=== PATIENT | female | born 1985 | race Asian ===

== ENCOUNTER → 2016-04-14 | Outpatient (CLI) | payer BC ==
[~2016-04-14] MED LIST: DOCU-94 PO; FERR1TAB23 PO; HYDR-5688 PO; PRENTAB26 PO
[2016-04-14 13:19] LABS: GTGD 50 Grams
== END | disposition home or self-care (01) ==
LOC: C.LAB1850 11:01
PROVIDERS: ATTEND Obstetrics & Gynecology
DX: Z34.03 Encounter for supervision of normal first pregnancy, third trimester (principal)

== ENCOUNTER → 2016-07-07 | Outpatient (CLI) | payer BC ==
[2016-07-07 12:00] LABS: URINE APPEARANCE CLEAR (CLEAR); URINE BILIRUBIN NEG (NEG); URINE COLOR YELLOW; URINE EPITHELIAL CELL AUTO >30 /lpf (0-5); URINE NITRITE NEG (NEG); URINE SPECIFIC GRAVITY 1.018 (1.000-1.030); UROBILINOGEN NEG (NEG)
[2016-07-07 12:06] LABS: MANUAL MICROSCOPIC REQUIRED? NO; REVIEW REQ? NO
[2016-07-07 12:18] LABS: HEMATOCRIT 31.8 % (37-47)
[2016-07-07 13:41] LABS: GTGD 50 Grams
== END | disposition home or self-care (01) ==
LOC: C.LAB1850 10:18
PROVIDERS: ATTEND Obstetrics & Gynecology
DX: Z34.03 Encounter for supervision of normal first pregnancy, third trimester (principal)

== ENCOUNTER → 2016-07-21 | Outpatient (CLI) | payer BC | END | disposition home or self-care (01) | LOC: C.LAB 08:12 | PROVIDERS: ATTEND Obstetrics & Gynecology | DX: O28.9 Unspecified abnormal findings on antenatal screening of mother (principal); Z3A.00 Weeks of gestation of pregnancy not specified ==

== ENCOUNTER 2016-09-01 05:42 | Inpatient (IN) | payer BC ==
[~2016-09-01] VITALS: Ht 162.6 cm; Wt 76.5 kg
[2016-09-01] MEDS ORDERED: LACTATED RINGER'S 1000ML 1,000 ML IV SCH (06:17)
[2016-09-01] MEDS ORDERED: LACTATED RINGER'S 1000ML 1,000 ML IV PRN (06:17)
[2016-09-01] MEDS ORDERED: PENICILLIN G POTASSIUM IV 6 MU in DEXTROSE 5% 250ML 250 ML IV STA (06:22)
[2016-09-01] MEDS ORDERED: FERR1TAB23 PO (06:28)
[2016-09-01] MEDS ORDERED: PRENTAB26 PO (06:28)
[2016-09-01 06:29] VITALS: Ht 162.6 cm; Wt 76.5 kg
[2016-09-01 06:38] LABS: HEMATOCRIT 33.2 % (37-47); MEAN CORPUSCULAR HEMOGLOBIN 31.4 pg (25-34); MEAN CORPUSCULAR HGB CONC 35.2 g/dl (32-36); MEAN PLATELET VOLUME 10.3 fL (7.4-10.4); PLATELET COUNT 171 K/uL (130-400); RED BLOOD COUNT 3.73 M/uL (4.2-5.4)
[2016-09-01] MEDS ORDERED: LACTATED RINGER'S 1000ML 500 ML IV PRN ×2 (08:54→12:10)
[2016-09-01] MEDS ORDERED: OXYTOCIN 30 UNITS/500ML NSS IV PRN ×2 (09:00→15:30)
[2016-09-01] MEDS: PENICILLIN G POTASSIUM IV 3 MU in DEXTROSE 5% 100ML 100 ML IV PRN ×2 (10:16→14:04)
[2016-09-01] MEDS ORDERED: EpHEDrine SULFATE INJ 50 MG/ML AMP ONE (11:03)
[2016-09-01] MEDS ORDERED: FENTANYL 2MCG/ML ROPIV 1.25MG/ML 100ML BAG EPI ONE (11:03)
[2016-09-01] MEDS: BUPIVACAINE 0.25% 30 ML VIAL ONE ×2 (11:18→12:03)
[2016-09-01] MEDS: FENTANYL CITRATE INJ 50 MCG/1 ML 2 ML VIAL ONE ×2 (11:19→12:04)
[2016-09-01] MEDS ORDERED: NALOXONE HCL INJ 1 MG in SODIUM CHLORIDE 0.9% 1000ML 1,000 ML IV PRN (12:10)
[2016-09-01] MEDS ORDERED: FENTANYL 2MCG/ML ROPIV 1.25MG/ML 100ML BAG EPI PRN (12:15)
[2016-09-01] MEDS ORDERED: NALBUPHINE HCL INJ 10 MG/ML AMP IV PRN (12:15)
[2016-09-01] MEDS ORDERED: NALOXONE HCL INJ 0.4 MG/1 ML VIAL/CARP IV PRN (12:15)
[2016-09-01] MEDS ORDERED: DiphenhydrAMINE HCL 50 MG/ML VIAL IV PRN (12:15)
[2016-09-01] MEDS ORDERED: EpHEDrine SULFATE INJ 50 MG/ML AMP IV PRN (12:15)
[2016-09-01] MEDS ORDERED: SUPERCREAM 0.870 % 15GM JAR EXT PRN (15:30)
[2016-09-01] MEDS ORDERED: LANOLIN OINT EXT PRN ×2 (15:30)
[2016-09-01] MEDS ORDERED: ACETAMINOPHEN 325 MG TAB PO PRN (15:30)
[2016-09-01] MEDS ORDERED: ACETAMINOPHEN/CODEINE 300/30MG TAB PO PRN ×2 (15:30)
[2016-09-01] MEDS ORDERED: BENZOCAINE 20% AER SPR 82.5 GM CAN EXT PRN (15:30)
--- NOTE | 2016-09-01 16:23 | Anesthesia Procedure Note ---
Anesthesia Epidural Removal Nt Date & Time Sep 01, 2016 at 16:23 Vital Signs Pain Intensity: 0.0 Notes Mental Status: alert / awake / arousable, participated in evaluation Nausea / Vomiting: adequately controlled Pain: adequately controlled Airway Patency, RR, SpO2: stable & adequate BP & HR: stable & adequate Hydration State: stable & adequate Neuraxial Anesthesia: was administered, sensory block is resolving Anesthetic Complications: no major complications apparent, pt satisfied with anesthetic care Epidural: removed without complications, with tip intact
[2016-09-01 18:30] VITALS: BP 111/75; PULSE 93; TEMP 36.8; O2SAT 100
[2016-09-01 19:30] VITALS: BP 107/73; PULSE 94; TEMP 36.6
--- NOTE | 2016-09-01 19:58 | DELIVERY SUMMARY ---
DATE OF OPERATION: 09/01/2016 She is a 31-year-old G1, P0 female, EDC of 09/26/2016, who presented with rupture of membranes at approximately 0400 hours on September 01. The patient presented to labor and delivery with grossly rupture of membranes. She was 4 cm upon arrival and she remains at 4 cm 4 hours later and Pitocin augmentation was begun. She received epidural analgesia and progressed to full dilation. She then pushed effectively over an intact perineum for delivery of a viable female . Mouth and nasopharynx were suctioned on the perineum. The rest of the delivered easily and was placed on the mother's abdomen for further attention. The cord was clamped and cut, cord blood for donation was obtained. The placenta was then expressed intact with a 3-vessel cord. A second degree perineal laceration was repaired with 3-0 chromic. The nurse has noted during pushing, that a polyp like lesion had extruded from the rectum during pushing. It was still prolapsed and on a very narrow stalk. It appeared to be either a polyp or a prolapsed hemorrhoid. The stalk was ligated with 3-0 chromic and the polyp/hemorrhoid was removed & sent to pathology. Bleeding was well controlled. Vaginal bleeding was controlled with dilute Pitocin. Estimated blood loss was 250 mL. Post-removal of this lesion revealed no other masses in the anus. She does have multiple external hemorrhoids as well. Mother and were doing well after delivery. I attest to the content of the Intraoperative Record and any orders documented therein. Any exceptions are noted below. [facility]
[2016-09-01] MEDS: DOCUSATE SODIUM 100 MG CAP PO SCH (20:02)
[2016-09-01 23:30] VITALS: BP 103/64; PULSE 87; TEMP 36.8
[2016-09-01] MEDS: IBUPROFEN 600 MG TAB PO PRN (23:37)
[2016-09-02 03:30] VITALS: BP 108/69; PULSE 80; TEMP 36.8
[2016-09-02 06:50] LABS: HEMATOCRIT 27.4 % (37-47)
--- NOTE | 2016-09-02 07:23 | Progress Note ---
Subjective Sep 02, 2016. Subjective conversation w/ patient, physical exam Ambulation: ambulating normally Voiding: no voiding problems Passing Gas: Yes Diet Tolerance: Regular Diet Lochia: Moderate Feeding Type: Breast Feeding Review of Systems Constitutional: No fever, No chills, No sweats, No weight loss, No weakness, No fatigue, No problem reported Breast: No see HPI, No breast lump, No change in shape, No nipple discharge, No breast pain, No problem reported Abdomen: No pain, No nausea, No vomiting, No diarrhea, No constipation, No GI bleeding, No problem reported Female : No see HPI, No dysuria, No urinary frequency, No hematuria, No incontinence, No abnormal vaginal bleeding, No vaginal discharge, No problem reported Objective Vital Signs Date Time Temp Pulse Resp B/P (MAP) Pulse Ox O2 Delivery O2 Flow Rate FiO2 09/02/16 03:30 36.8 80 16 108/69 (82) Room Air 09/01/16 23:30 36.8 87 16 103/64 (77) Room Air 09/01/16 23:30 Room Air 09/01/16 19:30 36.6 94 20 107/73 (84) Room Air 09/01/16 18:30 36.8 93 14 111/75 (87) 100 Room Air Physical Exam General Appearance: WELL-APPEARING, NO APPARENT DISTRESS Abdomen: non tender, soft Fundus: Firm, Non-Tender, Relation to Umbilicus (at U) Extremities: no calf tenderness Laboratory Results Last 24 Hours Test 09/02/16 06:20 Hemoglobin 9.4 g/dL Hematocrit 27.4 % Assessment and Plan Post- Day#: 1 Continue Routine Care: stable course continue current care plan hgb is 9.4 start ferrous sulfate daily
[2016-09-02 07:40] VITALS: BP 122/80; PULSE 82; TEMP 36.6; O2SAT 99
[2016-09-02] MEDS: DOCUSATE SODIUM 100 MG CAP PO SCH ×2 (07:48→19:54)
[2016-09-02] MEDS: PRENATAL VITAMIN TAB PO SCH (07:48)
[2016-09-02] MEDS: IBUPROFEN 600 MG TAB PO PRN ×2 (07:48→21:20)
[2016-09-02] MEDS: FERROUS SULFATE 325 MG TAB PO SCH (08:36)
[2016-09-02 11:55] VITALS: BP 122/76; PULSE 81; TEMP 36.6
[2016-09-02 15:46] VITALS: BP 116/75; PULSE 98; TEMP 36.8
[2016-09-02] MEDS ORDERED: BISACODYL 5 MG TABEC PO SCH (20:00)
--- NOTE | 2016-09-02 21:06 | Discharge Instructions ---
Discharge Instructions Date of Service Sep 02, 2016. Admission Reason for Admission: With 36 Weeks Completed Gestation, Discharge Discharge Diagnosis / Problem: after delivery Discharge Goals Goal(s): Routine recovery after delivery Medications Continue Dispensed Medications: supercream, dermaplast, tucks, lansinoh Activity Recommendations Activity Limitations: as noted below . Instructions / Follow-Up Instructions / Follow-Up ACTIVITY RECOMMENDATIONS: * Gradual return to full activity over the next 2-3 weeks. * No lifting - nothing heavier than baby over the next 2-3 weeks. * Do not engage in vigorous exercise, sexual activity or sports until cleared by your physician. * Do not drive or operate any motorized equipment until cleared by your physician. * You may shower/bathe daily. MEDICATIONS: For discomfort or pain, you may use Acetaminophen (Tylenol), Ibuprofen (Advil), or Naproxen (Aleve) following the package directions. For constipation you may use Colace following the package directions. BREAST CARE: If you are not breast feeding: * Wear a supportive bra 24 hours a day for one to two weeks. * Avoid stimulating your breasts and nipples as much as possible during the first few weeks after delivery. * When taking a shower, have the warm water hit your back, not breasts. * When your breasts feel full, apply ice packs. Usually three to four times a day helps ease the discomfort. * Take a mild pain medication (Tylenol / Motrin) when you are uncomfortable. If breast feeding: * Use breast milk to lubricate nipples. Lansinoh cream may be used for sore nipples. You do not need to remove cream prior to breast feeding. If using a different brand of cream, check the label for directions regarding removal of cream prior to nursing. * Wear a supportive bra. * If having problems with breasts or breast feeding, call a safety and health consultant or your health care provider. EPISIOTOMY CARE: After delivery, if you have an episiotomy (stitches), the following steps will ease discomfort and aid healing. * For the first 24 hours after delivery, place ice packs next to your episiotomy to help reduce swelling. * After the first 24 hour-period, sitz baths, either portable or in the tub, are suggested. A shower with a shower arm sprayed over the episiotomy may be comforting. * Misty care should be done after each voiding and bowel movement. Squirt warm water from a plastic bottle over the perineum (region of the body between the anus and urinary opening) and pat dry. * Use Dermoplast to ease discomfort. Shake container. [place] directly over the episiotomy. Place a Tucks on a clean sanitary pad next to your episiotomy. SPECIAL CARE INSTRUCTIONS: When you are discharged from the hospital, it is important for you to follow the instructions listed below: * During the first week at home, you should be able to care for yourself and your baby. In addition, the usual light household activities are encouraged. * Limit your activities to the way you feel. Do not try to clean the house or move furniture. Be sensible. * If you actively engage in sports and have done so up until the time of your delivery, you may resume these activities as soon as you feel able. This may take up to one month or even longer. Use good judgment. * Continue to take your vitamins for at least six weeks after the of your baby. * Your diet need not be limited unless you were on a special diet before your delivery. Breast-feeding mothers need around 2500 calories per day and at least 64-80 ounces of fluid per day (8 to 10 glasses). * You should eat foods from the four major food groups. Crash diets or fad diets are to be avoided. Eating lean meats, fresh fruits and vegetables, low-fat dairy products, high fiber foods and a regular exercise program, will help you get back to your pre- weight without putting your health at risk. * Constipation is sometimes a problem after delivery. Take a mild laxative as needed. If breast feeding, Milk of Magnesia is acceptable to use. You may use a suppository or Fleets enema if no episiotomy. * A daily shower or tub bath is suggested. Be sure to thoroughly and gently dry the perineum. * A bloody vaginal discharge will usually continue until around four weeks post . A small amount of bleeding may continue for as long as six weeks. Vaginal discharge changes from the bright red bleeding after delivery to pink then brownish and finally yellowish-pink before becoming white and disappearing. * Bleeding may increase with activity. Your first period may come in 4-8 weeks. If you are breast feeding, your period may be delayed even longer. * Veguita (sex) can begin whenever both you and your partner feel comfortable and do not have any form of genital infection. It is recommended that you wait at least six weeks for internal and external healing to occur. If you have questions, please talk to your health care practitioner. A condom should be used to prevent infection and . * Foreplay, gentle intercourse and lubrication is very important the first several times to prevent pain. A water-based lubricant such as K-Y jelly or Astroglide may be used. * If you have RH negative blood and your baby is RH positive, you will receive RHOGAM by injection prior to discharge. The nurse will give you a card to keep with you that has the date and place that you received RHOGAM after delivery. * During your care, you had a Rubella screen done to check for the presence of rubella antibodies in your blood. If your test was negative, you will receive a Rubella vaccine prior to discharge. This vaccine may cause a fever, soreness at the injection site and flu-like symptoms. If these symptoms persist, notify your health care practitioner. is not advised for one month after a Rubella vaccine. * Verbalizes understanding of car seat law as reviewed with patient nursing. * Car Seat hand-out given and reviewed with patient by nursing. * Shaken baby information reviewed with patient by nursing. Call you doctor if: * Heavy bleeding (saturating several pads an hour) or passing clots the size of your fist. * A fever >101 degrees F (38.3 degrees C) on two occasions four hours apart and /or chills. * Unusual pain in the pelvic or vaginal areas. * "Baby Blues" lasting longer than two weeks. If you have any questions or concerns, call your health care practitioner at . FOLLOW UP VISIT: * Please call the office at to schedule a 6 week examination. It is important you keep this appointment. It is important for you to make arrangements for either yearly or twice yearly check-ups thereafter. Current Hospital Diet Patient's current hospital diet: Regular OB Diet Discharge Diet Recommended Diet: Regular Diet Pending Studies Studies pending at discharge: no Medical Emergencies . Who to Call and When: Medical Emergencies: If at any time you feel your situation is an emergency, please call 911 immediately. . Non-Emergent Contact Non-Emergency issues call your: Head Of Operation And Logistics . . "Provider Documentation" section prepared by Nata Subramanian. . VTE Core Measure Inpt VTE Proph given/why not?: Treatment not indicated
[2016-09-03 00:05] VITALS: BP 101/66; PULSE 83; TEMP 36.6
[2016-09-03 07:17] VITALS: BP 117/79; PULSE 97; TEMP 36.6; O2SAT 99
--- NOTE | 2016-09-03 07:44 | Progress Note ---
Subjective Sep 03, 2016. Subjective conversation w/ patient, physical exam Ambulation: ambulating normally Voiding: no voiding problems Diet Tolerance: Regular Diet Lochia: Small Feeding Type: Breast Feeding Pain: bottom sore and stings with urination Objective Vital Signs Date Time Temp Pulse Resp B/P (MAP) Pulse Ox O2 Delivery O2 Flow Rate FiO2 09/03/16 00:05 Room Air 09/03/16 00:05 36.6 83 16 101/66 (78) Room Air 09/02/16 15:46 36.8 98 20 116/75 (89) Room Air 09/02/16 11:55 36.6 81 18 122/76 (91) Room Air Physical Exam General Appearance: WELL-APPEARING, WD/WN, NO APPARENT DISTRESS Respiratory/Chest: lungs clear Cardiovascular: regular rate, rhythm Abdomen: non tender, soft Fundus: Firm, Relation to Umbilicus (2 down) Extremities: non-tender Assessment and Plan Post- Day#: 2 Continue Routine Care: stable routine care, d/c home, instructions reviewed. f/u 6 wks pp check. discussed sitz baths.
[2016-09-03] MEDS: PRENATAL VITAMIN TAB PO SCH (07:55)
[2016-09-03] MEDS: DOCUSATE SODIUM 100 MG CAP PO SCH (07:55)
[2016-09-03] MEDS: FERROUS SULFATE 325 MG TAB PO SCH (07:55)
[2016-09-03] MEDS: IBUPROFEN 600 MG TAB PO PRN (13:12)
[2016-09-03 16:00] VITALS: BP 113/75; PULSE 86; TEMP 36.5
== END 2016-09-03 19:00 | disposition home or self-care (01) | DRG 775 ==
LOC: C.OPB 05:42 → C.LD 05:45 → C.OPB 06:22 → C.OBG 18:07
PROVIDERS: ADMIT Obstetrics & Gynecology; ATTEND Obstetrics & Gynecology
PROC: 10E0XZZ Delivery of Products of Conception, External Approach (ICD-10-PCS; principal; 2016-09-01)
PROC: 0KQM0ZZ Repair Perineum Muscle, Open Approach (ICD-10-PCS; principal; 2016-09-01)
PROC: 4A1HXFZ Monitoring of Products of Conception, Cardiac Rhythm, External Approach (ICD-10-PCS; principal; 2016-09-01)
DX: O42.92 Full-term premature rupture of membranes, unspecified as to length of time between rupture and onset of labor (principal); O70.1 Second degree perineal laceration during delivery; Z3A.36 36 weeks gestation of pregnancy; Z37.0 Single live birth

== ENCOUNTER 2016-09-12 00:55 | Emergency (ER) | payer BC ==
[~2016-09-12] VITALS: Ht 165.1 cm; Wt 70.0 kg
[~2016-09-12 00:55] MED LIST changes: -DOCU-94 PO; -HYDR-5688 PO
[2016-09-12 00:59] VITALS: TEMP 36.6; Ht 165.1 cm; Wt 70.0 kg
[2016-09-12] MEDS ORDERED: SODIUM CHLORIDE 0.9% 1000ML 1,000 ML IV STA (01:23)
[2016-09-12] MEDS ORDERED: ALUMINUM/MAGNESIUM SUSP 30 ML UDC PO STA (01:23)
[2016-09-12] MEDS ORDERED: ONDANSETRON INJ 2 MG/ML 2 ML VIAL IV STA (01:23)
[2016-09-12 01:52] LABS: MEAN CELL VOLUME 88.3 fL (80-100); MEAN CORPUSCULAR HEMOGLOBIN 31.9 pg (25-34); MEAN CORPUSCULAR HGB CONC 36.1 g/dl (32-36); MEAN PLATELET VOLUME 9.1 fL (7.4-10.4); PLATELET COUNT 289 K/uL (130-400); RED BLOOD COUNT 3.51 M/uL (4.2-5.4)
[2016-09-12 01:57] LABS: URINE APPEARANCE CLEAR (CLEAR); URINE BILIRUBIN NEG (NEG); URINE COLOR DK YELLOW; URINE EPITHELIAL CELL AUTO >30 /lpf (0-5); URINE NITRITE NEG (NEG); URINE SPECIFIC GRAVITY 1.023 (1.000-1.030); UROBILINOGEN NEG (NEG); ZZUR CULT IF INDIC CLEAN CATCH YES
[2016-09-12 02:01] LABS: MANUAL MICROSCOPIC REQUIRED? NO; REVIEW REQ? YES
[2016-09-12] MEDS ORDERED: DOCU-94 PO (02:04)
[2016-09-12 02:08] LABS: BUN/CREATININE RATIO 23.8 (10-20); CALCIUM 10.3 mg/dl (8.5-10.1); CREATININE 0.78 mg/dl (0.60-1.20); POTASSIUM 3.6 mmol/L (3.5-5.1)
[2016-09-12 02:25] LABS: BASO % 0.1 %; BASO ABS # 0.01 K/uL (0-0.2); COMPLETE YES; EOS % 0.4 %; IG% 0.2 %; MONO % 5.3 %
[2016-09-12 02:43] VITALS: O2SAT 97
[2016-09-12] MEDS ORDERED: OPTIRAY 320 IV PRN (03:30)
--- NOTE | 2016-09-12 04:33 | EMERGENCY ROOM VISIT NOTE ---
History First contact with patient: 01:06 Chief Complaint: ABDOMINAL PAIN Stated Complaint: STOMACH INFLATION Nursing Triage Summary: pt presents with . pt speaks some tajik with at bedside to assist with translation. pt reports having baby September 01. reports first , vaginal delivery. states she had sudden onset of upper abd/epigastric pain tonight after dinner. denies vomiting, states she feels nauseaous. denies diarrhea. states she has vaginal discharge/bleeding "it has been regular." pt rates pain 4/10. pt alert and oriented x4. pt has gallbladder. History of Present Illness The patient is a 31 year old female who presents to the Emergency Room with complaints of epigastric pain with nausea since 9 PM tonight shortly after eating dinner which his pizza, beef and potatoes. Patient had a vaginal delivery 10 days ago. The baby is healthy. No complications. Patient describes the pain as severe, 9 out of 10. Nothing makes it better or worse. Patient denies chest pain, dyspnea, fever, chills, cough, congestion, back pain , urinary symptoms. She does not drink alcohol. Review of Systems See HPI for pertinent positives & negatives. A total of 10 systems reviewed and were otherwise negative. Past Medical/Surgical History Medical Problems: (1) with 36 completed weeks gestation (2) premature rupture of membranes Social History Smoking Status: Never Smoker Smokeless Tobacco Use: No Alcohol Use: none Drug Use: none Marital Status: Housing Status: lives with family Current/Historical Medications Scheduled Docusate Sodium (Colace), 100 MG PO QAM Ferrous Sulfate (Iron), 325 MG PO QAM Multivit/Min/Iron/Fol Ac/Pren ( Vitamin), 1 TAB PO HS Allergies Coded Allergies: Metronidazole (Verified Allergy, Mild, GI SYMPTOMS, 09/12/16) Physical Exam Vital Signs Date Time Temp Pulse Resp B/P (MAP) Pulse Ox O2 Delivery O2 Flow Rate FiO2 09/12/16 02:43 66 18 117/71 97 Room Air 09/12/16 02:43 97 Room Air 09/12/16 00:59 36.6 66 18 116/75 99 Room Air Physical Exam VITALS: Vitals are noted on the nurse's note and reviewed by myself. Vital signs stable. GENERAL: Pleasant female in obvious pain, nondiaphoretic, well-developed well- nourished. SKIN: The skin was without rashes, erythema, edema, or bruising. There is no tenting of the skin. Capillary reflex less than 2 seconds. HEAD: Normocephalic atraumatic. EARS: External auditory canals clear, tympanic membranes pearly lazo without erythema or effusion bilaterally. EYES: Pupils equal round and reactive to light and accommodation. Conjunctivae without injection, sclerae without icterus. Extraocular movements intact. NOSE: Patent, turbinates without inflammation or discharge. MOUTH: Mucous membranes moist. Pharynx without erythema or exudate. Uvula midline. Airway patent. Tongue does not deviate. NECK: Supple without nuchal rigidity. No lymphadenopathy. No thyromegaly. Cervical spine is nontender. No JVD. HEART: Regular rate and rhythm without murmurs gallops or rubs. LUNGS: Clear to auscultation bilaterally without wheezes, rales or rhonchi. No dullness to percussion. No retractions or accessory muscle use. ABDOMEN: Positive bowel sounds x 4. Normal tympanic percussion. Soft, tender to palpation epigastric region, no CVA tenderness, without masses or organomegaly. No guarding or rebound tenderness. MUSCULOSKELETAL: No muscle atrophy, erythema, or edema noted. NEURO: Patient was alert and oriented to person place and time. Normal sensation to light and sharp touch. No focal neurological deficits. Medical Decision & Procedures Laboratory Results 09/12/16 01:38 Red Blood Count 3.51, Mean Corpuscular Volume 88.3, Mean Corpuscular Hemoglobin 31.9, Mean Corpuscular Hemoglobin Concent 36.1, Mean Platelet Volume 9.1, Neutrophils (%) (Auto) 85.0, Lymphocytes (%) (Auto) 9.0, Monocytes (%) (Auto) 5.3, Eosinophils (%) (Auto) 0.4, Basophils (%) (Auto) 0.1, Neutrophils # (Auto) 7.56, Lymphocytes # (Auto) 0.80, Monocytes # (Auto) 0.47, Eosinophils # (Auto) 0.04, Basophils # (Auto) 0.01 09/12/16 01:38 Test 09/12/16 01:35 09/12/16 01:38 Urine Color DK YELLOW Urine Appearance CLEAR (CLEAR) Urine pH 6.0 (4.5-7.5) Urine Specific Welch 1.023 (1.000-1.030) Urine Protein NEG (NEG) Urine Glucose (UA) NEG (NEG) Urine Ketones NEG (NEG) Urine Occult Blood 3+ (NEG) Urine Nitrite NEG (NEG) Urine Bilirubin NEG (NEG) Urine Urobilinogen NEG (NEG) Urine Leukocyte Esterase SMALL (NEG) Urine WBC (Auto) 10-30 /hpf (0-5) Urine RBC (Auto) >30 /hpf (0-4) Urine Hyaline Casts (Auto) 5-10 /lpf (0-5) Urine Epithelial Cells (Auto) >30 /lpf (0-5) Urine Bacteria (Auto) 1+ (NEG) Urine Renal Epithelial Cells /lpf (0-5) White Blood Count 8.90 K/uL (4.8-10.8) Red Blood Count 3.51 M/uL (4.2-5.4) Hemoglobin 11.2 g/dL (12.0-16.0) Hematocrit 31.0 % (37-47) Mean Corpuscular Volume 88.3 fL (80-100) Mean Corpuscular Hemoglobin 31.9 pg (25-34) Mean Corpuscular Hemoglobin Concent 36.1 g/dl (32-36) Platelet Count 289 K/uL (130-400) Mean Platelet Volume 9.1 fL (7.4-10.4) Neutrophils (%) (Auto) 85.0 % Lymphocytes (%) (Auto) 9.0 % Monocytes (%) (Auto) 5.3 % Eosinophils (%) (Auto) 0.4 % Basophils (%) (Auto) 0.1 % Neutrophils # (Auto) 7.56 K/uL (1.4-6.5) Lymphocytes # (Auto) 0.80 K/uL (1.2-3.4) Monocytes # (Auto) 0.47 K/uL (0.11-0.59) Eosinophils # (Auto) 0.04 K/uL (0-0.5) Basophils # (Auto) 0.01 K/uL (0-0.2) RDW Standard Deviation 40.6 fL (36.4-46.3) RDW Coefficient of Variation 12.6 % (11.5-14.5) Immature Granulocyte % (Auto) 0.2 % Immature Granulocyte # (Auto) 0.02 K/uL (0.00-0.02) Anion Gap 9.0 mmol/L (3-11) Est Creatinine Clear Calc Drug Dose 104.5 ml/min Estimated GFR () 119.1 Estimated GFR (Non- 102.7 BUN/Creatinine Ratio 23.8 (10-20) Calcium Level 10.3 mg/dl (8.5-10.1) Total Bilirubin 1.0 mg/dl (0.2-1) Direct Bilirubin 0.5 mg/dl (0-0.2) Aspartate Amino Transf (AST/SGOT) 145 U/L (15-37) Alanine Aminotransferase (ALT/SGPT) 88 U/L (12-78) Alkaline Phosphatase 147 U/L (45-117) Total Protein 7.1 gm/dl (6.4-8.2) Albumin 3.4 gm/dl (3.4-5.0) Lipase 2009 U/L (73-393) Medications Administered Medications (Trade) Dose Ordered Sig/Gregory Route Start Time Stop Time Status Last Admin Dose Admin Ondansetron HCl (Zofran Inj) 4 mg NOW STAT IV 09/12/16 01:23 09/12/16 01:29 DC 09/12/16 01:47 4 MG Al Hydroxide/Mg Hydroxide (Maalox Susp) 30 ml NOW STAT PO 09/12/16 01:23 09/12/16 01:29 DC 09/12/16 01:46 30 ML Sodium Chloride 1,000 ml @ 999 mls/hr Q1H1M STAT IV 09/12/16 01:23 09/12/16 02:23 DC 09/12/16 01:48 999 MLS/HR ED Course Prior records/ancillary studies reviewed. Triage Nursing notes reviewed. Additional history obtained from family. The patient's history was concerning for abdominal pain. Differential diagnosis: Etiologies such as appendicitis, diverticulitis, PUD, biliary pathology, UTI, pancreatitis, obstruction, mesenteric ischemia, aortic pathology, infections, inflammatory bowel disease, renal colic, as well as others were entertained. Physical examination findings: As above. ER treatment provided: MiraLAX, Zofran, IV fluids On reassessment the patient felt better. Diagnostics interpreted by me: The labs revealed elevated lipase and LFTs Imaging studies: CT was negative pancreatitis Ultrasound with no gallbladder wall thickening, trace pericholecystic fluid Exam and history seem consistent with pancreatitis. Patient was offered admission and requests to be discharged home. She is advised to do clear liquid diet today and then progress as tolerated to bland diet and low fat diet. She is advised to follow-up tomorrow with family care for reevaluation or here in the ER sooner for abdominal pain, fevers, worsening signs or symptoms or as needed. Patient was pain-free and requested to leave. I felt this is a reasonable option. She did not have acute abdomen on exam. No CT evidence of pancreatitis. Patient needed to pump and was given a breast pump prior to going to CT. Patient felt better after being medicated as above.By the evaluation outlined above emergent etiologies such as appendicitis, diverticulitis, PUD, UTI, obstruction, mesenteric ischemia, aortic pathology , inflammatory bowel disease, renal colic, as well as others were deemed relatively unlikely. Case management will help the patient make a follow-up appointment for tomorrow. The pt informed about the findings as listed above. All questions were answered and pleased with the treatment. Return instructions were outlined and the patient was discharged in stable condition. Referral: The patient was referred back to their primary care physician for follow-up tomorrow for a recheck of the current condition. Case reviewed with my attending Medical Decision As above Impression Primary Impression: Pancreatitis Departure Information Dispostion Home / Self-Care Condition GOOD Referrals No Doctor, Assigned (PCP) Patient Instructions My [facility] Additional Instructions Recommend clear liquid diet for next 24 hours and then progress to bland low- fat diet. Acetaminophen(Tylenol) may be used for fever or pain. Use 1000mg every six hours as needed. Avoid using more than 3000mg in a 24 hour period. Rest and drink plenty of fluids as tolerated. Continue current medications. Avoid strenuous activities and anything that worsens your pain. Resume normal activities once your symptoms resolve. Return to the ER immediately for worsening or persistent chest pain, abdominal pain, vomiting, fevers, chest pains, difficulty breathing, worsening of your condition, or as needed. Follow up with your primary physician tomorrow for a recheck of your current condition. Call this morning for an appointment. Case management will help me make this appointment. Problem Qualifiers Primary Impression: Pancreatitis Chronicity: acute Pancreatitis type: unspecified pancreatitis type Acute pancreatitis complication: unspecified Qualified Codes: K85.90 - Acute pancreatitis without necrosis or infection, unspecified
[2016-09-12 04:43] VITALS: BP 129/78; PULSE 65; O2SAT 98
--- NOTE | 2016-09-12 07:18 | DIAGNOSTIC IMAGING REPORT ---
ABDOMINAL ULTRASOUND, RIGHT UPPER QUADRANT HISTORY: epigastric pain. COMPARISON: None. FINDINGS: Pancreas: The pancreas demonstrates a normal echotexture. Liver: Unremarkable. Gallbladder: There are few small gallstones. No gallbladder wall thickening. Trace pericholecystic fluid. Focal thickening at the gallbladder fundus consistent with adenomyomatosis. CBD: Mildly prominent measuring up to 6.6 mm. Right kidney: No hydronephrosis. IMPRESSION: 1. Cholelithiasis. 2. No gallbladder wall thickening. There may be a trace amount of pericholecystic fluid. 3. Adenomyomatosis within the fundus of the gallbladder. 4. Common bile duct is mildly prominent at 6.6 mm. Electronically signed by: Ever Dias M.D. 09/12/2016 7:16 AM Dictated Date/Time: 09/12/2016 7:14 AM
--- NOTE | 2016-09-12 08:09 | DIAGNOSTIC IMAGING REPORT ---
ABDOMEN AND PELVIS CT WITH IV CONTRAST CT DOSE: 382.32 mGy.cm HISTORY: Pain epi pain, ? Pancreatitis TECHNIQUE: Multiaxial CT images of the abdomen and pelvis were performed following the use of intravenous contrast. COMPARISON STUDY: None. FINDINGS: Lung bases are considered clear. Minimal dependent basilar atelectasis. Liver spleen and pancreas appear unremarkable. Gallbladder is negative for distention. Heart bowel pattern within the abdomen and pelvis is nonobstructive. Moderate prominence of the uterus and endometrium consistent with patient's state. No significant free fluid is identified. IMPRESSION: No acute process within the abdomen or pelvis. Nonobstructive bowel pattern. Electronically signed by: Jesus Forrest M.D. 09/12/2016 8:07 AM Dictated Date/Time: 09/12/2016 8:04 AM
== END 2016-09-12 04:43 | disposition home or self-care (01) ==
LOC: C.EDB 00:57
DX: K85.90 Acute pancreatitis without necrosis or infection, unspecified (principal); Z88.8 Allergy status to other drugs, medicaments and biological substances

== ENCOUNTER → 2016-09-13 | Outpatient (CLI) | payer BC ==
[~2016-09-13] MED LIST changes: +DOCU-94 PO; +HYDR-5688 PO
[2016-09-13 22:19] LABS: BLOOD UREA NITROGEN 12 mg/dl (7-18); BUN/CREATININE RATIO 18.1 (10-20); CARBON DIOXIDE 20 mmol/L (21-32); CHLORIDE 107 mmol/L (98-107); CREATININE 0.68 mg/dl (0.60-1.20); GLUCOSE 64 mg/dl (70-99); POTASSIUM 3.6 mmol/L (3.5-5.1); SODIUM 140 mmol/L (136-145)
[2016-09-13 22:21] LABS: ALKALINE PHOSPHATASE 154 U/L (45-117); ALT/SGPT 185 U/L (12-78); AST/SGOT 51 U/L (15-37)
[2016-09-13 22:29] LABS: CALCIUM 9.8 mg/dl (8.5-10.1)
== END | disposition home or self-care (01) ==
LOC: C.LAB 21:35
PROVIDERS: ATTEND Family Medicine
DX: K80.20 Calculus of gallbladder without cholecystitis without obstruction (principal); K85.90 Acute pancreatitis without necrosis or infection, unspecified

== ENCOUNTER 2016-09-23 21:59 | Inpatient (IN) | payer BC ==
[~2016-09-23] VITALS: Ht 165.1 cm; Wt 62.0 kg
[~2016-09-23 21:59] MED LIST changes: -HYDR-5688 PO
[2016-09-23] MEDS ORDERED: ALUMINUM/MAGNESIUM SUSP 30 ML UDC PO STA (22:14)
[2016-09-23] MEDS ORDERED: LIDOCAINE HCL 2% VISC SOLN 20 ML UDC PO STA (22:14)
[2016-09-23] MEDS ORDERED: ONDANSETRON INJ 2 MG/ML 2 ML VIAL IV STA (22:14)
[2016-09-23] MEDS ORDERED: SODIUM CHLORIDE 0.9% 1000ML 1,000 ML IV STA (22:14)
[2016-09-23 22:52] LABS: BASO % 0.4 %; BASO ABS # 0.02 K/uL (0-0.2); COMPLETE YES; HEMATOCRIT 33.5 % (37-47); IG% 0.2 %; LYMPH % 36.2 %; LYMPH ABS # 1.69 K/uL (1.2-3.4); MEAN CELL VOLUME 89.1 fL (80-100); MEAN CORPUSCULAR HEMOGLOBIN 31.9 pg (25-34); MEAN CORPUSCULAR HGB CONC 35.8 g/dl (32-36); MEAN PLATELET VOLUME 10.1 fL (7.4-10.4); MONO % 8.1 %; NEUT % 52.1 %; PLATELET COUNT 257 K/uL (130-400); RED BLOOD COUNT 3.76 M/uL (4.2-5.4); WHITE BLOOD COUNT 4.67 K/uL (4.8-10.8)
[2016-09-23 23:03] LABS: PARTIAL THROMBOPLASTIN RATIO 1.1; PROTHROMBIN TIME (PATIENT) 10.7 SECONDS (9.0-12.0)
[2016-09-23 23:04] LABS: MANUAL MICROSCOPIC REQUIRED? NO; REVIEW REQ? NO; URINE APPEARANCE CLEAR (CLEAR); URINE BILIRUBIN NEG (NEG); URINE COLOR YELLOW; URINE NITRITE NEG (NEG); URINE PH 8.5 (4.5-7.5); URINE SPECIFIC GRAVITY 1.018 (1.000-1.030); UROBILINOGEN NEG (NEG); ZZUR CULT IF INDIC CLEAN CATCH NO
[2016-09-23 23:10] LABS: BUN/CREATININE RATIO 19.9 (10-20); CALCIUM 10.3 mg/dl (8.5-10.1); CREATININE 0.71 mg/dl (0.60-1.20); POTASSIUM 3.9 mmol/L (3.5-5.1)
[2016-09-24] MEDS ORDERED: FENTANYL CITRATE INJ 50 MCG/1 ML 2 ML VIAL IV ONE
--- NOTE | 2016-09-24 00:28 | EMERGENCY ROOM VISIT NOTE ---
History Report prepared by Lauro: Jair Will Under the Supervision of: Dr. Chuck Rueda D.O. First contact with patient: 22:03 Chief Complaint: GI ASSESSMENT Stated Complaint: PANCREATITIS History of Present Illness The patient is a 31 year old female who presents to the Emergency Room with complaints of constant abdominal pain for the past hour. She currently rates her discomfort as a 5/10 in severity. The patient's states that the patient was in the ER a few weeks ago for similar symptoms, and she was diagnosed with pancreatitis and gall stones. The patient states that she is nauseous, though she denies any vomiting. The states that the patient is currently breast feeding her child. The patient states that the last time she ate was 1730, and she ate fish, tofu, and eggplant. Source of History: patient, spouse/significant other Onset: one hour ago Position: abdomen Symptom Intensity: 5/10 Timing: constant Associated Symptoms: + nausea, No vomiting Review of Systems See HPI for pertinent positives & negatives. A total of 10 systems reviewed and were otherwise negative. Past Medical & Surgical Medical Problems: (1) Cholecystitis (2) with 36 completed weeks gestation (3) premature rupture of membranes Social History Smoking Status: Never Smoker Alcohol Use: none Drug Use: none Marital Status: Housing Status: lives with family Current/Historical Medications Scheduled Docusate Sodium (Colace), 100 MG PO QAM Ferrous Sulfate (Iron), 325 MG PO QAM Multivit/Min/Iron/Fol Ac/Pren ( Vitamin), 1 TAB PO HS Allergies Coded Allergies: Metronidazole (Verified Allergy, Mild, GI SYMPTOMS, 09/23/16) Physical Exam Vital Signs Date Time Temp Pulse Resp B/P (MAP) Pulse Ox O2 Delivery O2 Flow Rate FiO2 09/24/16 00:20 61 09/23/16 23:40 69 18 119/71 99 Room Air 09/23/16 22:00 36.3 79 18 118/79 100 Room Air Physical Exam CONSTITUTIONAL/VITAL SIGNS: Reviewed / noted above. GENERAL: Non-toxic in appearance. INTEGUMENTARY: Warm, dry, and [place]. HEAD: Normocephalic. EYES: without scleral icterus or trauma. ENT/OROPHARYNX: clear and moist. LYMPHADENOPATHY/NECK: Is supple without lymphadenopathy or meningismus. RESPIRATORY: Lungs clear and equal. CARDIOVASCULAR: Regular rate and rhythm. GI/ABDOMEN: Mildly tender to the epigastrium and the right upper quadrant. Soft. No organomegaly or pulsatile mass. No rebound or guarding. Normal bowel sounds. EXTREMITIES: Warm and well perfused. BACK: No CVA tenderness. NEUROLOGICAL: Intact without focal deficits. PSYCHIATRIC: normal affect. MUSCULOSKELETAL: Normally developed with good muscle tone. Medical Decision & Procedures Laboratory Results 09/23/16 22:30 Red Blood Count 3.76, Mean Corpuscular Volume 89.1, Mean Corpuscular Hemoglobin 31.9, Mean Corpuscular Hemoglobin Concent 35.8, Mean Platelet Volume 10.1, Neutrophils (%) (Auto) 52.1, Lymphocytes (%) (Auto) 36.2, Monocytes (%) (Auto) 8.1, Eosinophils (%) (Auto) 3.0, Basophils (%) (Auto) 0.4, Neutrophils # (Auto) 2.43, Lymphocytes # (Auto) 1.69, Monocytes # (Auto) 0.38, Eosinophils # (Auto) 0.14, Basophils # (Auto) 0.02 09/23/16 22:30 Test 09/23/16 22:30 09/23/16 22:50 White Blood Count 4.67 K/uL (4.8-10.8) Red Blood Count 3.76 M/uL (4.2-5.4) Hemoglobin 12.0 g/dL (12.0-16.0) Hematocrit 33.5 % (37-47) Mean Corpuscular Volume 89.1 fL (80-100) Mean Corpuscular Hemoglobin 31.9 pg (25-34) Mean Corpuscular Hemoglobin Concent 35.8 g/dl (32-36) Platelet Count 257 K/uL (130-400) Mean Platelet Volume 10.1 fL (7.4-10.4) Neutrophils (%) (Auto) 52.1 % Lymphocytes (%) (Auto) 36.2 % Monocytes (%) (Auto) 8.1 % Eosinophils (%) (Auto) 3.0 % Basophils (%) (Auto) 0.4 % Neutrophils # (Auto) 2.43 K/uL (1.4-6.5) Lymphocytes # (Auto) 1.69 K/uL (1.2-3.4) Monocytes # (Auto) 0.38 K/uL (0.11-0.59) Eosinophils # (Auto) 0.14 K/uL (0-0.5) Basophils # (Auto) 0.02 K/uL (0-0.2) RDW Standard Deviation 39.4 fL (36.4-46.3) RDW Coefficient of Variation 12.1 % (11.5-14.5) Immature Granulocyte % (Auto) 0.2 % Immature Granulocyte # (Auto) 0.01 K/uL (0.00-0.02) Prothrombin Time 10.7 SECONDS (9.0-12.0) Prothromb Time International Ratio 1.0 (0.9-1.1) Activated Partial Thromboplast Time 28.3 SECONDS (21.0-31.0) Partial Thromboplastin Ratio 1.1 Anion Gap 7.0 mmol/L (3-11) Est Creatinine Clear Calc Drug Dose 105.2 ml/min Estimated GFR () 133.4 Estimated GFR (Non- 115.1 BUN/Creatinine Ratio 19.9 (10-20) Calcium Level 10.3 mg/dl (8.5-10.1) Total Bilirubin 0.4 mg/dl (0.2-1) Direct Bilirubin 0.2 mg/dl (0-0.2) Aspartate Amino Transf (AST/SGOT) 54 U/L (15-37) Alanine Aminotransferase (ALT/SGPT) 43 U/L (12-78) Alkaline Phosphatase 125 U/L (45-117) Total Protein 6.8 gm/dl (6.4-8.2) Albumin 3.6 gm/dl (3.4-5.0) Lipase 154 U/L (73-393) Urine Color YELLOW Urine Appearance CLEAR (CLEAR) Urine pH 8.5 (4.5-7.5) Urine Specific [place] 1.018 (1.000-1.030) Urine Protein NEG (NEG) Urine Glucose (UA) NEG (NEG) Urine Ketones NEG (NEG) Urine Occult Blood 1+ (NEG) Urine Nitrite NEG (NEG) Urine Bilirubin NEG (NEG) Urine Urobilinogen NEG (NEG) Urine Leukocyte Esterase SMALL (NEG) Urine WBC (Auto) 5-10 /hpf (0-5) Urine RBC (Auto) 0-4 /hpf (0-4) Urine Hyaline Casts (Auto) 1-5 /lpf (0-5) Urine Epithelial Cells (Auto) 5-10 /lpf (0-5) Urine Bacteria (Auto) NEG (NEG) Laboratory results as stated above per my review. Medications Administered Medications (Trade) Dose Ordered Sig/Gregory Route Start Time Stop Time Status Last Admin Dose Admin Sodium Chloride 1,000 ml @ 999 mls/hr Q1H1M STAT IV 09/23/16 22:14 09/23/16 23:14 DC 09/23/16 22:14 999 MLS/HR Ondansetron HCl (Zofran Inj) 4 mg NOW STAT IV 09/23/16 22:14 09/23/16 22:16 DC 09/23/16 22:38 4 MG Al Hydroxide/Mg Hydroxide (Maalox Susp) 30 ml NOW STAT PO 09/23/16 22:14 09/23/16 22:16 DC 09/23/16 22:14 30 ML Lidocaine HCl (Viscous Lidocaine 2% Soln) 10 ml NOW STAT PO 09/23/16 22:14 09/23/16 22:16 DC 09/23/16 22:14 10 ML Fentanyl Citrate (Fentanyl Inj) 100 mcg NOW ONCE IV 09/24/16 00:00 09/24/16 00:01 DC 09/24/16 00:04 100 MCG ED Course 2209: Previous medical records were reviewed. The patient was evaluated in room B7. A complete history and physical examination was performed. 2214: Viscous Lidocaine 2% Soln 10ml PO, Maalox Susp 30ml PO, Zofran Inj 4mg IV , Sodium Chloride 1000 ml @ 999 mls/hr IV 2355: I reevaluated the patient, and I updated her on the treatment plan. 0000: Fentanyl Inj 100mcg IV 0018: I discussed the patient's case with Dr. Estrada. He is going to evaluate the patient for further treatment Medical Decision Differential considered: pancreatitis, hepatitis, or acute cholecystitis, AAA, UTI, pyelonephritis, kidney stones, appendicitis, diverticulitis, shingles, bowel obstruction mesenteric ischemia, intussusception,hernia, ovarian torsion, ruptured ovarian cyst, ectopic , . Medication Reconciliation: I attest that I have personally reviewed the patient' s current medication list. Blood pressure Screening: Patient was found to have normal blood pressure on screening and does not require follow-up. This is a 31-year-old female who presents to the ED with a chief complaint of epigastric abdominal pain. Her symptoms started about an hour prior to arrival. It is associated with nausea. The patient has had recent similar symptoms and had ultrasound with cholelithiasis and lab findings suggesting pancreatitis. She was discharged. She had repeat outpatient studies that revealed resolved pancreatic enzymes. Her physical exam reveals some mild epigastric and right upper quadrant abdominal tenderness. Vital signs are normal. CBC is normal, complete metabolic panel was unremarkable, lipase is negative, urine did not show infection. Ultrasound of the gallbladder reveals stones and sludge within the distended gallbladder. There was no wall thickening. Common bile duct is prominent measuring up to 11 mm. This is increased compared to a prior ultrasound. Correlation with MRCP was suggested. The patient was told the results. She was given a GI cocktail spinal fluids and IV Zofran. She was also given IV fentanyl for pain relief. I spoke with the hospitalist, who will see the patient for further inpatient evaluation and care. Consults Time Called: 14 Consulting Physician: Dr. Estrada Returned Call: [phone] I discussed the patient's case with Dr. Estrada. He is going to evaluate the patient for further treatment. Impression Primary Impression: Biliary colic Additional Impression: Choledocholithiasis Scribe Attestation The scribe's documentation has been prepared under my direction and personally reviewed by me in its entirety. I confirm that the note above accurately reflects all work, treatment, procedures, and medical decision making performed by me. Departure Information Dispostion Being Evaluated By Hospitalist Referrals Senait Dunbar M.D. (PCP) Patient Instructions My [facility] Problem Qualifiers
[2016-09-24] MEDS ORDERED: HYDROmorphone INJ 0.5 MG/0.5 ML SYR IV PRN (00:30)
[2016-09-24] MEDS ORDERED: ACETAMINOPHEN 325 MG TAB PO PRN (00:30)
[2016-09-24] MEDS ORDERED: ONDANSETRON INJ 2 MG/ML 2 ML VIAL IV PRN (00:30)
--- NOTE | 2016-09-24 01:27 | History and Physical ---
History & Physical Date & Time of Service: Sep 24, 2016 at 01:12 Chief Complaint: Pancreatitis Primary Care Physician: Senait Dunbar M.D. History of Present Illness Source: patient 31 y/o F with no significant medical history. Pt developed RUQ abdominal pain which was unremitting and presented for evaluation. She had similar symptoms one week prior. She was treated for presumed mild pancreatitis in the ER and discharged. The pt gave on 09/01 and is currently breast feeding. She denies any fevers. Denies vomiting or diarrhea. An abdominal ultrasound was obtained revealing a distended gall bladder with stones and sludge in addition to a dilated CBD at 11mm. Social History Smoking Status: Never Smoker Drug Use: none Marital Status: Allergies Coded Allergies: Metronidazole (Verified Allergy, Mild, GI SYMPTOMS, 09/23/16) Home Medications Scheduled Docusate Sodium (Colace), 100 MG PO QAM Ferrous Sulfate (Iron), 325 MG PO QAM Multivit/Min/Iron/Fol Ac/Pren ( Vitamin), 1 TAB PO HS Review of Systems Constitutional: No fever, No chills, No sweats Eyes: No worsening of vision ENT: No hearing loss, No unusual epistaxis, No nasal symptoms Respiratory: No cough, No sputum, No wheezing Cardiovascular: No chest pain, No orthopnea, No PND Abdomen: + pain, + nausea, No vomiting, No diarrhea Musculoskeletal: No joint pain, No muscle pain Genitourinary - Female: No dysuria Neurologic: No memory loss, No paralysis, No weakness Psychiatric: No depression symptoms Endocrine: No fatigue Hematologic / Lymphatic: No abnormal bleeding/bruising Integumentary: No rash Allergic / Immunologic: No environmental allergies Physical Exam Vital Signs Date Time Temp Pulse Resp B/P (MAP) Pulse Ox O2 Delivery O2 Flow Rate FiO2 09/23/16 23:40 69 18 119/71 99 Room Air 09/23/16 22:00 36.3 79 18 118/79 100 Room Air General Appearance: WD/WN, no apparent distress Head: normocephalic Eyes: normal inspection, EOMI ENT: normal ENT inspection Neck: supple, no JVD Respiratory/Chest: chest non-tender, lungs clear, normal breath sounds Cardiovascular: regular rate, rhythm, no edema, no gallop, no JVD, no murmur, normal peripheral pulses Abdomen/GI: normal bowel sounds, non tender, soft Back: normal inspection, no CVA tenderness Extremities/Musculoskelatal: normal inspection, no calf tenderness, normal capillary refill 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, no motor/sensory deficits, alert, normal mood/affect, normal reflexes, oriented x 3 Skin: normal color, warm/dry, no rash Diagnostics Laboratory Results Results Past 24 Hours Test 09/23/16 22:30 09/23/16 22:50 Range/Units White Blood Count 4.67 4.8-10.8 K/uL Red Blood Count 3.76 4.2-5.4 M/uL Hemoglobin 12.0 12.0-16.0 g/dL Hematocrit 33.5 37-47 % Mean Corpuscular Volume 89.1 80-100 fL Mean Corpuscular Hemoglobin 31.9 25-34 pg Mean Corpuscular Hemoglobin Concent 35.8 32-36 g/dl Platelet Count 257 130-400 K/uL Mean Platelet Volume 10.1 7.4-10.4 fL Neutrophils (%) (Auto) 52.1 % Lymphocytes (%) (Auto) 36.2 % Monocytes (%) (Auto) 8.1 % Eosinophils (%) (Auto) 3.0 % Basophils (%) (Auto) 0.4 % Neutrophils # (Auto) 2.43 1.4-6.5 K/uL Lymphocytes # (Auto) 1.69 1.2-3.4 K/uL Monocytes # (Auto) 0.38 0.11-0.59 K/uL Eosinophils # (Auto) 0.14 0-0.5 K/uL Basophils # (Auto) 0.02 0-0.2 K/uL RDW Standard Deviation 39.4 36.4-46.3 fL RDW Coefficient of Variation 12.1 11.5-14.5 % Immature Granulocyte % (Auto) 0.2 % Immature Granulocyte # (Auto) 0.01 0.00-0.02 K/uL Prothrombin Time 10.7 9.0-12.0 SECONDS Prothromb Time International Ratio 1.0 0.9-1.1 Activated Partial Thromboplast Time 28.3 21.0-31.0 SECONDS Partial Thromboplastin Ratio 1.1 Sodium Level 143 136-145 mmol/L Potassium Level 3.9 3.5-5.1 mmol/L Chloride Level 110 98-107 mmol/L Carbon Dioxide Level 26 21-32 mmol/L Anion Gap 7.0 3-11 mmol/L Blood Urea Nitrogen 14 7-18 mg/dl Creatinine 0.71 0.60-1.20 mg/dl Est Creatinine Clear Calc Drug Dose 105.2 ml/min Estimated GFR () 133.4 Estimated GFR (Non- 115.1 BUN/Creatinine Ratio 19.9 10-20 Random Glucose 93 70-99 mg/dl Calcium Level 10.3 8.5-10.1 mg/dl Total Bilirubin 0.4 0.2-1 mg/dl Direct Bilirubin 0.2 0-0.2 mg/dl Aspartate Amino Transf (AST/SGOT) 54 15-37 U/L Alanine Aminotransferase (ALT/SGPT) 43 12-78 U/L Alkaline Phosphatase 125 45-117 U/L Total Protein 6.8 6.4-8.2 gm/dl Albumin 3.6 3.4-5.0 gm/dl Lipase 154 73-393 U/L Urine Color YELLOW Urine Appearance CLEAR CLEAR Urine pH 8.5 4.5-7.5 Urine Specific [place] 1.018 1.000-1.030 Urine Protein NEG NEG Urine Glucose (UA) NEG NEG Urine Ketones NEG NEG Urine Occult Blood 1+ NEG Urine Nitrite NEG NEG Urine Bilirubin NEG NEG Urine Urobilinogen NEG NEG Urine Leukocyte Esterase SMALL NEG Urine WBC (Auto) 5-10 0-5 /hpf Urine RBC (Auto) 0-4 0-4 /hpf Urine Hyaline Casts (Auto) 1-5 0-5 /lpf Urine Epithelial Cells (Auto) 5-10 0-5 /lpf Urine Bacteria (Auto) NEG NEG Impression Assessment and Plan 31 y/o F with no significant medical history. Pt developed RUQ abdominal pain which was unremitting and presented for evaluation. She had similar symptoms one week prior. She was treated for presumed mild pancreatitis in the ER and discharged. The pt gave on 09/01 and is currently breast feeding. She denies any fevers. Denies vomiting or diarrhea. An abdominal ultrasound was obtained revealing a distended gall bladder with stones and sludge in addition to a dilated CBD at 11mm. We will order an MRCP and consult both GI and surgery. I have informed the pt that due likely recurrence of cholecystitis or pancreatitis related to cholelithiasis. We have provided her with IVF, narcotic analgesia and will keep her NPO pending surgery and GI evaluation. She does not currently meet criteria for antibiotic therapy. Full code, SCDs pending surgical eval Total time for this admit including review of labs, meds, records - discussion with pt and ER attending - 35 min Level of Care Med/Surg Resuscitation Status FULL RESUSCITATION VTE Prophylaxis VTE Risk Assessment Done? Y/N: Yes Risk Level: Moderate Given or contraindicated: SCD's
[2016-09-24 01:30] VITALS: BP 126/82; PULSE 63; TEMP 36.6; O2SAT 97; Ht 165.1 cm; Wt 62.0 kg
[2016-09-24] MEDS: D5NSS + 20MEQ KCL 1,000 ML IV SCH ×2 (02:13→11:55)
--- NOTE | 2016-09-24 05:42 | DIAGNOSTIC IMAGING REPORT ---
GALLBLADDER-ABD LIMITED CLINICAL HISTORY: ABDOMINAL PAIN/GI nausea. Vomiting. TECHNIQUE: Ultrasound COMPARISON STUDY: 09/12/2016 FINDINGS: Gallstones and sludge within the somewhat distended gallbladder. Common bile that mildly increased in prominence at 9 mm. Liver pancreas and right kidney are unremarkable. IMPRESSION: 1. Gallstones and gallbladder sludge. 2. Slight increase in distention of the common bile duct currently at 9 mm. Electronically signed by: Jesus Forrest M.D. 09/24/2016 5:40 AM Dictated Date/Time: 09/24/2016 5:38 AM
--- NOTE | 2016-09-24 06:27 | Surgery Progress Note ---
Surgery Progress Note Date of Service Sep 24, 2016. Subjective see dictated note Objective Vital Signs: Date Time Temp Pulse Resp B/P (MAP) Pulse Ox O2 Delivery O2 Flow Rate FiO2 09/24/16 01:30 36.6 63 16 126/82 97 Room Air 09/24/16 01:30 Room Air 09/24/16 01:30 97 Room Air 09/24/16 01:29 63 16 117/81 99 09/24/16 01:18 63 16 117/81 99 Room Air 09/24/16 00:20 61 09/23/16 23:40 69 18 119/71 99 Room Air 09/23/16 22:00 36.3 79 18 118/79 100 Room Air Laboratory Results: Results Past 24 Hours Test 09/23/16 22:30 09/23/16 22:50 Range/Units White Blood Count 4.67 4.8-10.8 K/uL Red Blood Count 3.76 4.2-5.4 M/uL Hemoglobin 12.0 12.0-16.0 g/dL Hematocrit 33.5 37-47 % Mean Corpuscular Volume 89.1 80-100 fL Mean Corpuscular Hemoglobin 31.9 25-34 pg Mean Corpuscular Hemoglobin Concent 35.8 32-36 g/dl Platelet Count 257 130-400 K/uL Mean Platelet Volume 10.1 7.4-10.4 fL Neutrophils (%) (Auto) 52.1 % Lymphocytes (%) (Auto) 36.2 % Monocytes (%) (Auto) 8.1 % Eosinophils (%) (Auto) 3.0 % Basophils (%) (Auto) 0.4 % Neutrophils # (Auto) 2.43 1.4-6.5 K/uL Lymphocytes # (Auto) 1.69 1.2-3.4 K/uL Monocytes # (Auto) 0.38 0.11-0.59 K/uL Eosinophils # (Auto) 0.14 0-0.5 K/uL Basophils # (Auto) 0.02 0-0.2 K/uL RDW Standard Deviation 39.4 36.4-46.3 fL RDW Coefficient of Variation 12.1 11.5-14.5 % Immature Granulocyte % (Auto) 0.2 % Immature Granulocyte # (Auto) 0.01 0.00-0.02 K/uL Prothrombin Time 10.7 9.0-12.0 SECONDS Prothromb Time International Ratio 1.0 0.9-1.1 Activated Partial Thromboplast Time 28.3 21.0-31.0 SECONDS Partial Thromboplastin Ratio 1.1 Sodium Level 143 136-145 mmol/L Potassium Level 3.9 3.5-5.1 mmol/L Chloride Level 110 98-107 mmol/L Carbon Dioxide Level 26 21-32 mmol/L Anion Gap 7.0 3-11 mmol/L Blood Urea Nitrogen 14 7-18 mg/dl Creatinine 0.71 0.60-1.20 mg/dl Est Creatinine Clear Calc Drug Dose 105.2 ml/min Estimated GFR () 133.4 Estimated GFR (Non- 115.1 BUN/Creatinine Ratio 19.9 10-20 Random Glucose 93 70-99 mg/dl Calcium Level 10.3 8.5-10.1 mg/dl Total Bilirubin 0.4 0.2-1 mg/dl Direct Bilirubin 0.2 0-0.2 mg/dl Aspartate Amino Transf (AST/SGOT) 54 15-37 U/L Alanine Aminotransferase (ALT/SGPT) 43 12-78 U/L Alkaline Phosphatase 125 45-117 U/L Total Protein 6.8 6.4-8.2 gm/dl Albumin 3.6 3.4-5.0 gm/dl Lipase 154 73-393 U/L Urine Color YELLOW Urine Appearance CLEAR CLEAR Urine pH 8.5 4.5-7.5 Urine Specific [place] 1.018 1.000-1.030 Urine Protein NEG NEG Urine Glucose (UA) NEG NEG Urine Ketones NEG NEG Urine Occult Blood 1+ NEG Urine Nitrite NEG NEG Urine Bilirubin NEG NEG Urine Urobilinogen NEG NEG Urine Leukocyte Esterase SMALL NEG Urine WBC (Auto) 5-10 0-5 /hpf Urine RBC (Auto) 0-4 0-4 /hpf Urine Hyaline Casts (Auto) 1-5 0-5 /lpf Urine Epithelial Cells (Auto) 5-10 0-5 /lpf Urine Bacteria (Auto) NEG NEG Assessment & Plan 09/24/16- discussed laparoscopic cholecystectomy with pt and - Husbands father is surgeon in [place]- they want to hold off on surgery and evaluate the CBD and gallbladder further and possibly have surgery later in the year. Will defer to Med/GI w/u and discussions and cont to follow pt. Normally we would proceed with lap suzy sooner than later
[2016-09-24 07:03] VITALS: BP 104/66; PULSE 66; TEMP 36.7; O2SAT 100
--- NOTE | 2016-09-24 07:44 | CONSULTATION REPORT ---
DATE OF CONSULTATION: 09/24/2016 REASON FOR CONSULTATION: Abdominal pain and gallstone pancreatitis. HISTORY OF PRESENT ILLNESS: The patient is a 31-year-old female who is in the Emergency Room for the second time in 2 weeks for upper abdominal pain. On September 12, she was in the ER with abdominal pain and what appeared to be gallstone pancreatitis with a lipase of 2009 and apparently, she was discharged home because she has had a baby recently in the past 2-3 weeks. Last night, she developed worsening upper and right upper quadrant abdominal pain and brought back into the Emergency Room. At this point, her white count is normal. Her AST and alkaline phosphatase are mildly elevated. Total bilirubin is normal. Her lipase is 154. She did have a prior ultrasound, which showed gallstones. Her CAT scan was essentially negative. Her family history is significant that her 's father is a surgeon in [place] and has been discussing the case with the son. REVIEW OF SYSTEMS: Show positives in the HPI. Ten other systems reviewed and negative. She has no other significant past medical history, but does have AN ALLERGY TO FLAGYL. PHYSICAL EXAMINATION: HEENT: Grossly normal. Her sclerae appear nonicteric. NECK: Supple. LUNGS: Clear without respiratory distress. HEART: Regular rate and rhythm. ABDOMEN: Flat and soft. She does have some discomfort to deep palpation in the upper abdomen. EXTREMITIES: Well perfused without edema. NEUROLOGIC: She is alert and awake. I did review her CAT scan and ultrasound. ASSESSMENT AND PLAN: A 31-year-old female with a history of gallstone pancreatitis and now recurrent biliary colic, possible sludge and small stone in the common bile duct, although her lipase and liver functions are relatively normal. She has been ordered an MRCP and ordered a GI evaluation. I did discuss laparoscopic cholecystectomy sooner than later in the patient and her said after discussion with his father who is a surgeon in [place] that they feel we should evaluate this situation more and possibly later in the year, proceed with cholecystectomy. At the present time, we do not plan to push for cholecystectomy per the patient's wishes.
[2016-09-24 09:02] LABS: BUN/CREATININE RATIO 17.5 (10-20); CALCIUM 8.8 mg/dl (8.5-10.1); CREATININE 0.53 mg/dl (0.60-1.20); POTASSIUM 3.9 mmol/L (3.5-5.1)
[2016-09-24 09:10] LABS: ALB/GLOB RATIO 1.1 (0.9-2)
[2016-09-24] MEDS ORDERED: MoRPHine SULFATE 4 MG/ML 1 ML CARP\\VIAL IV PRN (12:15)
--- NOTE | 2016-09-24 12:27 | Progress Note ---
Subjective Date of Service: Sep 24, 2016. Subjective Pt evaluation today including: conversation w/ patient, physical exam, chart review, lab review, review of inpatient medication list feeling better no RUQ pain since dilauded - notes was around 2a. notes hasn't needed pain meds since. no pain no nausea no vomiting nursing - currently has been pumping, three times thus far since admission - they're OK w supplementing with formula and then returning to nursing as needed during current acute episode discussed LFTs w pt / , MRCP to be done this afternoon Problem List Medical Problems: (1) Biliary colic Status: Acute (2) Choledocholithiasis Status: Acute (3) Pancreatitis Status: Acute Review of Systems ROS otherwise negative except for as above Objective Vital Signs Date Time Temp Pulse Resp B/P (MAP) Pulse Ox O2 Delivery O2 Flow Rate FiO2 09/24/16 07:15 Room Air 09/24/16 07:03 36.7 66 17 104/66 (79) 100 Room Air 09/24/16 01:30 36.6 63 16 126/82 97 Room Air 09/24/16 01:30 Room Air 09/24/16 01:30 97 Room Air 09/24/16 01:29 63 16 117/81 99 09/24/16 01:18 63 16 117/81 99 Room Air 09/24/16 00:20 61 09/23/16 23:40 69 18 119/71 99 Room Air 09/23/16 22:00 36.3 79 18 118/79 100 Room Air Physical Exam General Appearance: no apparent distress Eyes: EOMI ENT: hearing grossly normal Neck: trachea midline Respiratory/Chest: no respiratory distress, no accessory muscle use Abdomen: non tender (maybe minimal tenderness RUQ no guarding no rebound no shah's), soft 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, alert, normal mood/affect Skin: normal color, warm/dry Laboratory Results Last 24 Hours Test 09/23/16 22:30 09/23/16 22:50 09/24/16 08:21 White Blood Count 4.67 K/uL Red Blood Count 3.76 M/uL Hemoglobin 12.0 g/dL Hematocrit 33.5 % Mean Corpuscular Volume 89.1 fL Mean Corpuscular Hemoglobin 31.9 pg Mean Corpuscular Hemoglobin Concent 35.8 g/dl Platelet Count 257 K/uL Mean Platelet Volume 10.1 fL Neutrophils (%) (Auto) 52.1 % Lymphocytes (%) (Auto) 36.2 % Monocytes (%) (Auto) 8.1 % Eosinophils (%) (Auto) 3.0 % Basophils (%) (Auto) 0.4 % Neutrophils # (Auto) 2.43 K/uL Lymphocytes # (Auto) 1.69 K/uL Monocytes # (Auto) 0.38 K/uL Eosinophils # (Auto) 0.14 K/uL Basophils # (Auto) 0.02 K/uL RDW Standard Deviation 39.4 fL RDW Coefficient of Variation 12.1 % Immature Granulocyte % (Auto) 0.2 % Immature Granulocyte # (Auto) 0.01 K/uL Prothrombin Time 10.7 SECONDS Prothromb Time International Ratio 1.0 Activated Partial Thromboplast Time 28.3 SECONDS Partial Thromboplastin Ratio 1.1 Sodium Level 143 mmol/L 141 mmol/L Potassium Level 3.9 mmol/L 3.9 mmol/L Chloride Level 110 mmol/L 109 mmol/L Carbon Dioxide Level 26 mmol/L 25 mmol/L Anion Gap 7.0 mmol/L 7.0 mmol/L Blood Urea Nitrogen 14 mg/dl 9 mg/dl Creatinine 0.71 mg/dl 0.53 mg/dl Est Creatinine Clear Calc Drug Dose 105.2 ml/min 140.9 ml/min Estimated GFR () 133.4 148.7 Estimated GFR (Non- 115.1 128.3 BUN/Creatinine Ratio 19.9 17.5 Random Glucose 93 mg/dl 88 mg/dl Calcium Level 10.3 mg/dl 8.8 mg/dl Total Bilirubin 0.4 mg/dl 1.4 mg/dl Direct Bilirubin 0.2 mg/dl Aspartate Amino Transf (AST/SGOT) 54 U/L 577 U/L Alanine Aminotransferase (ALT/SGPT) 43 U/L 348 U/L Alkaline Phosphatase 125 U/L 146 U/L Total Protein 6.8 gm/dl 6.2 gm/dl Albumin 3.6 gm/dl 3.3 gm/dl Lipase 154 U/L Urine Color YELLOW Urine Appearance CLEAR Urine pH 8.5 Urine Specific [place] 1.018 Urine Protein NEG Urine Glucose (UA) NEG Urine Ketones NEG Urine Occult Blood 1+ Urine Nitrite NEG Urine Bilirubin NEG Urine Urobilinogen NEG Urine Leukocyte Esterase SMALL Urine WBC (Auto) 5-10 /hpf Urine RBC (Auto) 0-4 /hpf Urine Hyaline Casts (Auto) 1-5 /lpf Urine Epithelial Cells (Auto) 5-10 /lpf Urine Bacteria (Auto) NEG Globulin 2.9 gm/dl Albumin/Globulin Ratio 1.1 Assessment and Plan RUQ pain / choledocholithiasis -now w increase in LFTs making obstructing stone vs evolving cholecystitis more likely -no s/s sepsis no severe RUQ pain and reassuring exam - so she//father in law's plan for conservative measures thus far is reasonable - although d/w them frankly that with her marked rise in LFTs i harbor concern that this will worsen or be a recurring issue more likely than resolve without further intervention -if MRCP at all abnormal, or LFTs don't resolve, seems obvious that conservative measures will be a total failure; as long as she shows no s/s sepsis, and if MRCP normal and LFTs resolve, then possible that she's passed a stone and could do OK w conservative care although i d/w them i still would harbor significant concerns of this being a recurring issue and risk possible biliary sepsis -await MRCP and GI input / -d/w pharmacy, looked up guidelines, should pump and discard for ~12hrs w dilauded. changed to morphine since AAP has this as the preferred narcotic if required during nursing. no clear guidelines on what is/isn't safe after if morphine is given - based on pharmacokinetics, should be very likely to be safe if pump/discard for 4hrs after a dose, almost certainly no metabolites in milk if pump/discard for 8hrs after a dose - passed this along to pt/; discussed ok to supplement with formula if required while pt going through current situation ("while breast is best, in the current situation, it's ok to say that fed is best") they expressed understanding and appreciation of care DVT proph -ambulation
--- NOTE | 2016-09-24 14:54 | DIAGNOSTIC IMAGING REPORT ---
MRI abdomen MRCP CLINICAL HISTORY: suspect choledocholithiasis TECHNIQUE: Multiaxial MRI acquisition COMPARISON STUDY: 09/23/2016 FINDINGS: Liver is uniform throughout. Delayed images of the slightly comminuted fracture a 6.5 mm. This is diminished in the patient's prior ultrasound. Slight thickening of the gallbladder wall. There is a potential 3 mm filling defect of the mid common duct on coronal 2-D images #9 and 23. Mild irritability of the distal common duct. All remaining components of the study are unremarkable. Pancreatic duct is negative for distention. IMPRESSION: 1. Mild decrease in diameter of the common bile duct to a current dimension 6.5 mm. 2. Possible 3 mm calculus within the mid common duct on a single reformatted coronal image 3. All remaining components of the study are unremarkable. 4. Mild thickening gallbladder wall Electronically signed by: Jesus Forrest M.D. 09/24/2016 2:52 PM Dictated Date/Time: 09/24/2016 2:43 PM
[2016-09-24 15:08] VITALS: BP 119/82; PULSE 57; TEMP 37.1; O2SAT 95
--- NOTE | 2016-09-24 16:08 | GASTROINTESTINAL CONSULTATION ---
DATE OF CONSULTATION: 09/24/2016 AGE: 31. SEX: Female. RACE: . ATTENDING PHYSICIAN: Dr. Estrada. CONSULTING PHYSICIAN: Dr. Minaya. REASON FOR CONSULTATION: Cholecystitis. HISTORY OF PRESENT ILLNESS: Newton Canchola is a 31-year-old female who developed pancreatitis approximately 2 weeks ago with an elevated lipase level and pain consistent with pancreatitis. She was discharged secondary to being 2-3 weeks and was treated conservatively; however, she returned to the Department of Emergency Medicine on September 24 with complaints of abdominal pain in the midepigastric and right upper quadrant region. She described her pain as 5/10 in intensity. She was noted in the ER to have elevated AST to 54 and alkaline phosphatase to 125 and had a gallbladder ultrasound, which showed gallstones and gallbladder sludge with an increase in distention of the common bile duct to [address] Wolff of general surgery was consulted and evaluated the patient. He did recommend an MRCP for further evaluation of her symptomatology and spoke with family and the patient due to her current state and improving symptoms at the time that Dr. Wolff saw the patient would like to hold off on cholecystectomy at present. At the time that I saw the patient, she states that her pain had improved significantly. She denied any mid epigastric or right upper quadrant abdominal pain. She denied any fevers, chills, nausea, vomiting, hematemesis, melena or hematochezia. She further denied any nausea or vomiting. She did have a significant increase in her AST and ALT overnight to 577 and 348 with an alkaline phosphatase of 146. I discussed these results with the patient and her , who was at bedside. Currently, an MRCP is scheduled, though she has not had this performed as of this time. She denied any further complaints. PAST MEDICAL HISTORY: Positive for pancreatitis approximately 2 weeks ago and she is approximately 3 weeks at this time. PAST SURGICAL HISTORY: Negative. ALLERGIES: FLAGYL. MEDICATIONS: At the present time include morphine 4 mg IV q. 4 hours p.r.n. pain, Tylenol 650 mg p.o. q. 4 hours p.r.n. pain, and Zofran 4 mg IV q. 6 hours p.r.n. pain. SOCIAL HISTORY: She is . No tobacco, alcohol or illicit drug use. FAMILY HISTORY: Negative for GI malignancy or inflammatory bowel disease. REVIEW OF SYSTEMS: Negative x10 system review other than pertinent positives listed in the HPI. PHYSICAL EXAMINATION: VITAL SIGNS: Temp of 36.7, pulse 66, respirations 17, blood pressure 104/66, and pulse ox 100% on room air. GENERAL: She is alert and oriented x3, cooperative, in no acute distress. HEAD: Normocephalic and atraumatic. EYES: Pupils equally round. Extraocular muscles are intact. Sclerae are nonicteric. ENT: External evaluation of ears and nose are normal. Oropharynx is clear. NECK: Soft and supple. There is no JVD or lymphadenopathy. CHEST: Clear to auscultation bilaterally. CARDIOVASCULAR SYSTEM: Regular rate and rhythm. ABDOMEN: Soft, nontender, and nondistended. Positive bowel sounds. There is no hepatosplenomegaly or stigmata of chronic liver disease. EXTREMITIES: No clubbing, no cyanosis, and no edema. SKIN: Soft and good turgor. LABORATORY STUDIES: Reviewed in the HPI. IMAGING STUDIES: Reviewed in the HPI. IMPRESSION: A 31-year-old female with recent pancreatitis and elevated liver panel with gallstones and sludge and a dilated common bile duct with MRCP pending. PLAN: At the present time, I would recommend that the patient undergo MRCP for further evaluation. If she is found to have any choledocholithiasis, I would recommend that she undergo an ERCP with stone removal and would also recommend that she have a cholecystectomy at some point in the near future. I did warn her that by not having her gallbladder removed, she could develop recurrent pancreatitis as gallstones are the #1 cause of pancreatitis in the world. Due to the patient's recent state, she does not wish to undergo a cholecystectomy at present and states that she would like to have this done at a later date. I again did warn her about delay in removal of her gallbladder. She will be kept n.p.o. at present and further recommendations will be made following MRCP. Once again, thanks for allowing me to participate in the care of this patient. If you have any further questions, please do not hesitate in contacting me.
--- NOTE | 2016-09-24 16:44 | Surgery Progress Note ---
Surgery Progress Note Date of Service Sep 24, 2016. Objective Vital Signs: Date Time Temp Pulse Resp B/P (MAP) Pulse Ox O2 Delivery O2 Flow Rate FiO2 09/24/16 15:08 37.1 57 18 119/82 (94) 95 Room Air 09/24/16 07:15 Room Air 09/24/16 07:03 36.7 66 17 104/66 (79) 100 Room Air 09/24/16 01:30 36.6 63 16 126/82 97 Room Air 09/24/16 01:30 Room Air 09/24/16 01:30 97 Room Air 09/24/16 01:29 63 16 117/81 99 09/24/16 01:18 63 16 117/81 99 Room Air 09/24/16 00:20 61 09/23/16 23:40 69 18 119/71 99 Room Air 09/23/16 22:00 36.3 79 18 118/79 100 Room Air Laboratory Results: Results Past 24 Hours Test 09/23/16 22:30 09/23/16 22:50 09/24/16 08:21 Range/Units White Blood Count 4.67 4.8-10.8 K/uL Red Blood Count 3.76 4.2-5.4 M/uL Hemoglobin 12.0 12.0-16.0 g/dL Hematocrit 33.5 37-47 % Mean Corpuscular Volume 89.1 80-100 fL Mean Corpuscular Hemoglobin 31.9 25-34 pg Mean Corpuscular Hemoglobin Concent 35.8 32-36 g/dl Platelet Count 257 130-400 K/uL Mean Platelet Volume 10.1 7.4-10.4 fL Neutrophils (%) (Auto) 52.1 % Lymphocytes (%) (Auto) 36.2 % Monocytes (%) (Auto) 8.1 % Eosinophils (%) (Auto) 3.0 % Basophils (%) (Auto) 0.4 % Neutrophils # (Auto) 2.43 1.4-6.5 K/uL Lymphocytes # (Auto) 1.69 1.2-3.4 K/uL Monocytes # (Auto) 0.38 0.11-0.59 K/uL Eosinophils # (Auto) 0.14 0-0.5 K/uL Basophils # (Auto) 0.02 0-0.2 K/uL RDW Standard Deviation 39.4 36.4-46.3 fL RDW Coefficient of Variation 12.1 11.5-14.5 % Immature Granulocyte % (Auto) 0.2 % Immature Granulocyte # (Auto) 0.01 0.00-0.02 K/uL Prothrombin Time 10.7 9.0-12.0 SECONDS Prothromb Time International Ratio 1.0 0.9-1.1 Activated Partial Thromboplast Time 28.3 21.0-31.0 SECONDS Partial Thromboplastin Ratio 1.1 Sodium Level 143 141 136-145 mmol/L Potassium Level 3.9 3.9 3.5-5.1 mmol/L Chloride Level 110 109 98-107 mmol/L Carbon Dioxide Level 26 25 21-32 mmol/L Anion Gap 7.0 7.0 3-11 mmol/L Blood Urea Nitrogen 14 9 7-18 mg/dl Creatinine 0.71 0.53 0.60-1.20 mg/dl Est Creatinine Clear Calc Drug Dose 105.2 140.9 ml/min Estimated GFR () 133.4 148.7 Estimated GFR (Non- 115.1 128.3 BUN/Creatinine Ratio 19.9 17.5 10-20 Random Glucose 93 88 70-99 mg/dl Calcium Level 10.3 8.8 8.5-10.1 mg/dl Total Bilirubin 0.4 1.4 0.2-1 mg/dl Direct Bilirubin 0.2 0-0.2 mg/dl Aspartate Amino Transf (AST/SGOT) 54 577 15-37 U/L Alanine Aminotransferase (ALT/SGPT) 43 348 12-78 U/L Alkaline Phosphatase 125 146 45-117 U/L Total Protein 6.8 6.2 6.4-8.2 gm/dl Albumin 3.6 3.3 3.4-5.0 gm/dl Lipase 154 73-393 U/L Urine Color YELLOW Urine Appearance CLEAR CLEAR Urine pH 8.5 4.5-7.5 Urine Specific [place] 1.018 1.000-1.030 Urine Protein NEG NEG Urine Glucose (UA) NEG NEG Urine Ketones NEG NEG Urine Occult Blood 1+ NEG Urine Nitrite NEG NEG Urine Bilirubin NEG NEG Urine Urobilinogen NEG NEG Urine Leukocyte Esterase SMALL NEG Urine WBC (Auto) 5-10 0-5 /hpf Urine RBC (Auto) 0-4 0-4 /hpf Urine Hyaline Casts (Auto) 1-5 0-5 /lpf Urine Epithelial Cells (Auto) 5-10 0-5 /lpf Urine Bacteria (Auto) NEG NEG Globulin 2.9 2.5-4.0 gm/dl Albumin/Globulin Ratio 1.1 0.9-2 Assessment & Plan 09/24/16-Elevated LFTs from adm, MRCP shows probable CBD stone- discussed with pt , - may consider ERCP but not surgery at this point- unless pts [id number] agrees. add unasyn 09/24/16- discussed laparoscopic cholecystectomy with pt and - Husbands father is surgeon in [place]- they want to hold off on surgery and evaluate the CBD and gallbladder further and possibly have surgery later in the year. Will defer to Med/GI w/u and discussions and cont to follow pt. Normally we would proceed with lap suzy sooner than later 09/24/16- discussed laparoscopic cholecystectomy with pt and - Husbands father is surgeon in [place]- they want to hold off on surgery and evaluate the CBD and gallbladder further and possibly have surgery later in the year. Will defer to Med/GI w/u and discussions and cont to follow pt. Normally we would proceed with lap suzy sooner than later
[2016-09-24] MEDS: AMPICILLIN/SULBACTAM SOD INJ 1,500 MG in SODIUM CHLORIDE 0.9% 100ML 100 ML IV SCH ×2 (18:51→23:47)
[2016-09-24 23:06] VITALS: BP 115/75; PULSE 62; TEMP 37; O2SAT 99
[2016-09-25] VITALS (8 sets, daily range): BP systolic 103–120; BP diastolic 60–80; PULSE 48–75; TEMP 36.4–37; O2SAT 97–100
[2016-09-25 06:05] LABS: HEMATOCRIT 35.6 % (37-47); MEAN CELL VOLUME 90.4 fL (80-100); MEAN CORPUSCULAR HEMOGLOBIN 29.9 pg (25-34); MEAN CORPUSCULAR HGB CONC 33.1 g/dl (32-36); MEAN PLATELET VOLUME 10.3 fL (7.4-10.4); PLATELET COUNT 223 K/uL (130-400); RED BLOOD COUNT 3.94 M/uL (4.2-5.4); WHITE BLOOD COUNT 4.32 K/uL (4.8-10.8)
[2016-09-25] MEDS: AMPICILLIN/SULBACTAM SOD INJ 1,500 MG in SODIUM CHLORIDE 0.9% 100ML 100 ML IV SCH ×4 (06:06→23:58)
--- NOTE | 2016-09-25 06:22 | Surgery Progress Note ---
Surgery Progress Note Date of Service Sep 25, 2016. Objective Vital Signs: Date Time Temp Pulse Resp B/P (MAP) Pulse Ox O2 Delivery O2 Flow Rate FiO2 09/24/16 23:45 Room Air 09/24/16 23:06 37.0 62 14 115/75 (88) 99 Room Air 09/24/16 16:05 Room Air 09/24/16 15:08 37.1 57 18 119/82 (94) 95 Room Air 09/24/16 07:15 Room Air 09/24/16 07:03 36.7 66 17 104/66 (79) 100 Room Air Laboratory Results: Results Past 24 Hours Test 09/24/16 08:21 09/25/16 05:26 Range/Units Sodium Level 141 136-145 mmol/L Potassium Level 3.9 3.5-5.1 mmol/L Chloride Level 109 98-107 mmol/L Carbon Dioxide Level 25 21-32 mmol/L Anion Gap 7.0 3-11 mmol/L Blood Urea Nitrogen 9 7-18 mg/dl Creatinine 0.53 0.60-1.20 mg/dl Est Creatinine Clear Calc Drug Dose 140.9 ml/min Estimated GFR () 148.7 Estimated GFR (Non- 128.3 BUN/Creatinine Ratio 17.5 10-20 Random Glucose 88 70-99 mg/dl Calcium Level 8.8 8.5-10.1 mg/dl Total Bilirubin 1.4 0.2-1 mg/dl Aspartate Amino Transf (AST/SGOT) 577 15-37 U/L Alanine Aminotransferase (ALT/SGPT) 348 12-78 U/L Alkaline Phosphatase 146 45-117 U/L Total Protein 6.2 6.4-8.2 gm/dl Albumin 3.3 3.4-5.0 gm/dl Globulin 2.9 2.5-4.0 gm/dl Albumin/Globulin Ratio 1.1 0.9-2 White Blood Count 4.32 4.8-10.8 K/uL Red Blood Count 3.94 4.2-5.4 M/uL Hemoglobin 11.8 12.0-16.0 g/dL Hematocrit 35.6 37-47 % Mean Corpuscular Volume 90.4 80-100 fL Mean Corpuscular Hemoglobin 29.9 25-34 pg Mean Corpuscular Hemoglobin Concent 33.1 32-36 g/dl RDW Standard Deviation 41.0 36.4-46.3 fL RDW Coefficient of Variation 12.2 11.5-14.5 % Platelet Count 223 130-400 K/uL Mean Platelet Volume 10.3 7.4-10.4 fL Assessment & Plan 09/25/16- No plan for lap suzy at this point , unless pt/ change their mind. reportedly sending lab reports, imaging to pt's father-in- law in [place]- he seems to be guiding care continue to follow 09/24/16-Elevated LFTs from adm, MRCP shows probable CBD stone- discussed with pt , - may consider ERCP but not surgery at this point- unless pts [id number] agrees. add unasyn 09/24/16- discussed laparoscopic cholecystectomy with pt and - Husbands father is surgeon in [place]- they want to hold off on surgery and evaluate the CBD and gallbladder further and possibly have surgery later in the year. Will defer to Med/GI w/u and discussions and cont to follow pt. Normally we would proceed with lap suzy sooner than later 09/24/16-Elevated LFTs from adm, MRCP shows probable CBD stone- discussed with pt , - may consider ERCP but not surgery at this point- unless pts [id number] agrees. add unasyn 09/24/16- discussed laparoscopic cholecystectomy with pt and - Husbands father is surgeon in [place]- they want to hold off on surgery and evaluate the CBD and gallbladder further and possibly have surgery later in the year. Will defer to Med/GI w/u and discussions and cont to follow pt. Normally we would proceed with lap suzy sooner than later
[2016-09-25 06:43] LABS: BUN/CREATININE RATIO 13.6 (10-20); CALCIUM 9.1 mg/dl (8.5-10.1); CREATININE 0.61 mg/dl (0.60-1.20); POTASSIUM 3.9 mmol/L (3.5-5.1)
[2016-09-25] MEDS: INDOMETHACIN 50 MG SUPP PR SCH ×2 (09:00→11:31)
--- NOTE | 2016-09-25 09:02 | Progress Note ---
Progress Note Date of Service Sep 25, 2016. Progress Note Pt was seen and evaluated this AM. No acute events overnight. Denies fever, chills, chest pain, abdominal pain, black/bloody stools. Last BM was Sunday. PE: No acute distress, abdomen is soft and nondistended with good bowel sounds, heart regular in rate & rhythm, lungts CTA. MRCP with ?choledocholithiasis. Transaminases remain elevated. Is agreeable to ERCP and cholecystectomy at this time. Will plan for ERCP with Dr. Ngo this AM followed by a cholecystectomy timing per surgery. Please send Indocin suppository on hold to OR to be administer before ERCP.
[2016-09-25] MEDS ORDERED: D5W AND LACTATED RINGERS 1,000 ML IV SCH (09:15)
[2016-09-25] MEDS ORDERED: ONDANSETRON INJ 2 MG/ML 2 ML VIAL ONE (09:34)
[2016-09-25] MEDS ORDERED: FENTANYL CITRATE INJ 50 MCG/1 ML 2 ML VIAL ONE (09:34)
[2016-09-25] MEDS ORDERED: DEXAMETHASONE SOD INJ 4 MG/ML VIAL ONE (09:34)
[2016-09-25] MEDS ORDERED: ROCURONIUM BROMIDE 10 MG/ML 5 ML VIAL ONE (09:34)
[2016-09-25] MEDS ORDERED: LIDOCAINE HCL 2% 2 ML VIAL (20MG/ML) ONE (09:34)
[2016-09-25] MEDS ORDERED: MIDAZOLAM HCL 1 MG/ML 2ML VIAL ONE (09:34)
[2016-09-25] MEDS ORDERED: PROPOFOL IV EMULSION 10 MG/ML 20 ML VIAL IV ONE (09:34)
[2016-09-25] MEDS ORDERED: ATROPINE SULFATE 0.1 MG/ML 5ML SYR IV PRN (09:45)
[2016-09-25] MEDS ORDERED: ONDANSETRON INJ 2 MG/ML 2 ML VIAL IV PRN (09:45)
[2016-09-25] MEDS ORDERED: EpHEDrine SULFATE INJ 50 MG/ML AMP IV PRN (09:45)
[2016-09-25] MEDS ORDERED: FENTANYL CITRATE INJ 50 MCG/1 ML 2 ML VIAL IV PRN (09:45)
[2016-09-25] MEDS ORDERED: BUPIVACAINE/EPINEPHRINE 0.5% MPF 1:200,000 10 ML VIAL ONE (09:56)
--- NOTE | 2016-09-25 10:21 | History & Physical Bridge Note ---
H&P Re-Evaluation Bridge Note: I have examined the patient, reviewed the History & Physical and in the interval since the performance of the History & Physical I have noted the following changes of clinical significance: No changes noted
--- NOTE | 2016-09-25 11:18 | GI REPORT ---
Procedure Date: 09/25/2016 10:33 AM Procedure: ERCP Indications: Abnormal MRCP, Biliary dilation on Ultrasound, Preop exam: Laparoscopic cholecystectomy Medicines: General Anesthesia, Indomethicin 100 mg rectal Complications: No immediate complications. Estimated blood loss: None Estimated Blood Loss: Estimated blood loss: none. Procedure: Pre-Anesthesia Assessment: - Prior to the procedure, a History and Physical was performed, and patient medications, allergies and sensitivities were reviewed. The patient's tolerance of previous anesthesia was reviewed. - ASA Grade Assessment: II - A patient with mild systemic disease. After obtaining informed consent, the scope was passed under direct vision. Throughout the procedure, the patient's blood pressure, pulse, and oxygen saturations were monitored continuously. The SCOPE was introduced through the mouth, and advanced to the duodenum and used to inject contrast into the bile duct. The ERCP was accomplished with ease. The patient tolerated the procedure well. 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 The esophagus was successfully intubated under direct vision. The scope was advanced to a normal major papilla in the descending duodenum without detailed examination of the pharynx, larynx and associated structures, and upper GI tract. The upper GI tract was grossly normal. A short 0.035 inch Soft Jagwire was passed into the biliary tree through a [employer]ni FS 35 sphincterotome. The sphincterotome was then passed over the guidewire and the bile duct was then deeply cannulated. Contrast was injected. A 6 mm biliary sphincterotomy was made with a monofilament traction (standard) sphincterotome using ERBE electrocautery. There was no post-sphincterotomy bleeding. The lower third of the main bile duct contained filling defect(s). The biliary tree was swept several times with an 8 mm balloon starting at the bifurcation. Sludge was swept from the duct. The total fluoroscopy exposure time was 1 minute and 38 seconds. Impression: - A sphincterotomy was performed. - A filling defect was seen on the cholangiogram. - The biliary tree was swept and sludge was found. Recommendation: - Surgical consultation for consideration of cholecystectomy today. Noman Ngo M.D. Noman Ngo MD 09/25/2016 11:17:44 AM This report has been signed electronically. Note Initiated On: 09/25/2016 10:33 AM I attest to the content of the Intraoperative Record and orders documented therein, exceptions below
--- NOTE | 2016-09-25 11:20 | [facility] Operative Report ---
Operative Report Operative Date Sep 25, 2016. Pre-Operative Diagnosis Choledocholithiasis, cholecystitis Post-Operative Diagnosis Same Procedure(s) Performed ERCP with papillotomy and sludge extraction Surgeon Dr. Noman Ngo Chief Of Staff Doctor Surgeon(s) None Estimated Blood Loss None Findings Sludge in CBD. Fluids See anesthesia note Drains None Anesthesia General Complication(s) None Disposition Laparoscopic cholecystectomy to follow immediately Indications Gallstone pancreatitis, abnormal imaging, elevated LFT's Description of Procedure See Provation report I attest to the content of the Intraoperative Record and any orders documented therein. Any exceptions are noted below.
--- NOTE | 2016-09-25 11:33 | DIAGNOSTIC IMAGING REPORT ---
ERCP BILIARY DUCTAL CLINICAL HISTORY: ERCP COMPARISON STUDY: MRCP 09/24/2016 FLUOROSCOPY TIME: 1 minute 38 seconds. FINDINGS: No filling defects based on retrograde cannulation of the common bile duct. Slight prominence of the common bile duct with no obstructive process. IMPRESSION: Negative study. Slight prominence of diameter of the common bile duct. No filling defects appreciated. Electronically signed by: Jesus Forrest M.D. 09/25/2016 11:32 AM Dictated Date/Time: 09/25/2016 11:31 AM
[2016-09-25] MEDS ORDERED: BUPIVACAINE/EPINEPHRINE 0.25% 1:200,000 30 ML VIAL INJ ONE (11:50)
--- NOTE | 2016-09-25 12:01 | [facility] Operative Report ---
Operative Report Operative Date Sep 25, 2016. Pre-Operative Diagnosis Choledocholithiasis. Post-Operative Diagnosis Same Procedure(s) Performed lap suzy Surgeon Dr. Huber Samson Wallpaperer Helper Surgeon(s) MACRO Urban Estimated Blood Loss [address] Ngo's report. sludge in CBD. normal anatomy during lap suzy Fluids See anesthesia note Specimens A: Gallbladder. Drains None Anesthesia General Complication(s) None Disposition Recovery Room / PACU (Laparoscopic cholecystectomy to follow immediately) I attest to the content of the Intraoperative Record and any orders documented therein. Any exceptions are noted below.
[2016-09-25] MEDS ORDERED: GLYCOPYRROLATE INJ 0.2 MG/ML VIAL ONE (12:11)
[2016-09-25] MEDS ORDERED: NEOSTIGMINE METHYLSULFATE 5 MG/5 ML SYR ONE (12:11)
[2016-09-25] MEDS ORDERED: MoRPHine SULFATE 4 MG/ML 1 ML CARP\\VIAL IV PRN (12:15)
--- NOTE | 2016-09-25 12:21 | OPERATIVE REPORT ---
DATE OF OPERATION: 09/25/2016 PREOPERATIVE DIAGNOSIS: Gallstone pancreatitis. POSTOPERATIVE DIAGNOSIS: Same. PROCEDURES: Laparoscopic cholecystectomy following ERCP by Dr. Ngo. Please see his dictation. SURGEON: Dr. Garces. PRECINCT POLICE LIEUTENANT: Daniel Yoon PA-C. ESTIMATED BLOOD LOSS: Approximately 10 mL. COMPLICATIONS: No immediate. ANESTHESIA: General. CONDITION: The patient tolerated the procedure well. OPERATIVE NOTE: Dr. Ngo had done an ERCP for which he found some sludge in the distal common bile duct and this was removed. Please see his report for full details. Following this, the patient was flipped back into the supine position, already intubated. The abdomen was then sterilely prepped and draped in usual fashion. A periumbilical incision made with an 11 blade scalpel and carried down through the soft tissue using electrocautery. Anterior rectus fascia was opened using electrocautery and two #0 Vicryl stay sutures were placed. Peritoneum was entered using blunt finger penetration and a finger sweep was performed to take down any underlying adhesions. A 12 mm Ethan trocar was placed and the abdomen was insufflated to 18 mmHg. Laparoscope was inserted and the abdomen examined 360 degrees. A subxiphoid 5 mm port and 2 right upper quadrant 5 mm ports were placed under direct vision. The gallbladder was grasped and elevated superiorly and laterally. The patient was placed in reverse Trendelenburg position and slightly airplaned to the left. We began by taking down some adhesions around the neck of the gallbladder. Eventually we were able to visualize the cystic duct, common duct junction. I was able to get a [place] around behind the cystic duct and skeletonize it. Two clips were placed proximally and 1 clip distally and it was transected using a laparoscopic scissor. In similar fashion, the cystic artery was identified and skeletonized. It was clipped twice proximally and once distally and transected. Electrocautery was used to remove the gallbladder from the gallbladder fossa. It was removed intact and placed into an EndoCatch bag. Several small bleeding points in the gallbladder fossa were controlled using electrocautery. At the end of the procedure, there was adequate hemostasis and no evidence of a bile leak. Irrigation was performed. A quick look around the abdomen showed no other abnormalities. The gallbladder was removed from the umbilical incision. All the trocars were removed and the abdomen was desufflated. The fascia of the camera port was closed using 0 Vicryl in a [id number] fashion. All the wounds were irrigated and closed using 4-0 Monocryl. Marcaine was injected around the incisions for postoperative analgesia and skin glue used as dressing. The patient was awakened, extubated, and transferred to recovery in stable condition. I attest to the content of the Intraoperative Record and any orders documented therein. Any exception s are noted below.
[2016-09-25] MEDS: LACTATED RINGER'S 1000ML 1,000 ML IV SCH ×3 (13:06→23:03)
--- NOTE | 2016-09-25 13:37 | Anesthesiology Progress Note ---
Anesthesia Post Op Note Date & Time Sep 25, 2016 at 13:37 Vital Signs Pain Intensity: 0.0 Vital Signs Past 12 Hours Date Time Temp Pulse Resp B/P (MAP) Pulse Ox O2 Delivery O2 Flow Rate FiO2 09/25/16 13:32 100 Nasal Cannula 2.0 09/25/16 12:45 36.5 57 19 118/75 100 Nasal Cannula 2 09/25/16 12:35 56 20 124/78 100 Nasal Cannula 2 09/25/16 12:25 63 18 128/80 100 Mask 8 09/25/16 12:15 58 17 122/77 100 Mask 10 09/25/16 12:08 36.5 58 12 124/76 100 Mask 10 09/25/16 09:14 Room Air 09/25/16 07:20 36.4 48 16 120/80 (93) 97 Room Air Notes Mental Status: alert / awake / arousable, participated in evaluation Pt Amnestic to Procedure: Yes Nausea / Vomiting: adequately controlled Pain: adequately controlled Airway Patency, RR, SpO2: stable & adequate BP & HR: stable & adequate Hydration State: stable & adequate Anesthetic Complications: no major complications apparent
[2016-09-25] MEDS ORDERED: NURSING VERBAL MED ORDER ONE (15:00)
--- NOTE | 2016-09-25 16:55 | Progress Note ---
Subjective Date of Service: Sep 25, 2016. Subjective Pt evaluation today including: conversation w/ patient, conversation w/ family , physical exam, chart review, lab review, review of studies, review of inpatient medication list some RUQ pain post ERCP and choley, not too terrible. still pumping milk, working on keeping supply up but throwing away milk baby eating milk saved at home/formula and doing well. no other new complaints. ROS otherwise negative except for as above Problem List Medical Problems: (1) Biliary colic Status: Acute (2) Choledocholithiasis Status: Acute (3) Pancreatitis Status: Acute Review of Systems ROS otherwise negative except for as above Objective Vital Signs Date Time Temp Pulse Resp B/P (MAP) Pulse Ox O2 Delivery O2 Flow Rate FiO2 09/25/16 16:07 36.9 75 16 103/61 (75) 100 Nasal Cannula 2.0 09/25/16 15:00 36.8 69 16 105/60 (75) 100 Nasal Cannula 2.0 09/25/16 13:54 61 15 114/70 (85) 100 Nasal Cannula 2.0 09/25/16 13:32 100 Nasal Cannula 2.0 09/25/16 13:00 37.0 59 16 115/76 (89) 100 Nasal Cannula 2.0 09/25/16 12:45 36.5 57 19 118/75 100 Nasal Cannula 2 09/25/16 12:35 56 20 124/78 100 Nasal Cannula 2 09/25/16 12:25 63 18 128/80 100 Mask 8 09/25/16 12:15 58 17 122/77 100 Mask 10 09/25/16 12:08 36.5 58 12 124/76 100 Mask 10 09/25/16 09:14 Room Air 09/25/16 07:20 36.4 48 16 120/80 (93) 97 Room Air 09/24/16 23:45 Room Air 09/24/16 23:06 37.0 62 14 115/75 (88) 99 Room Air Physical Exam General Appearance: no apparent distress Eyes: EOMI ENT: hearing grossly normal Neck: trachea midline Respiratory/Chest: no respiratory distress, no accessory muscle use Extremities: normal range of motion Neurologic/Psychiatric: lead qa analyst II-XII nml as tested, alert, normal mood/affect Skin: normal color, warm/dry Laboratory Results Last 24 Hours Test 09/25/16 05:26 White Blood Count 4.32 K/uL Red Blood Count 3.94 M/uL Hemoglobin 11.8 g/dL Hematocrit 35.6 % Mean Corpuscular Volume 90.4 fL Mean Corpuscular Hemoglobin 29.9 pg Mean Corpuscular Hemoglobin Concent 33.1 g/dl RDW Standard Deviation 41.0 fL RDW Coefficient of Variation 12.2 % Platelet Count 223 K/uL Mean Platelet Volume 10.3 fL Sodium Level 144 mmol/L Potassium Level 3.9 mmol/L Chloride Level 111 mmol/L Carbon Dioxide Level 24 mmol/L Anion Gap 9.0 mmol/L Blood Urea Nitrogen 8 mg/dl Creatinine 0.61 mg/dl Est Creatinine Clear Calc Drug Dose 122.4 ml/min Estimated GFR () 142.0 Estimated GFR (Non- 122.5 BUN/Creatinine Ratio 13.6 Random Glucose 64 mg/dl Calcium Level 9.1 mg/dl Total Bilirubin 0.9 mg/dl Direct Bilirubin 0.3 mg/dl Aspartate Amino Transf (AST/SGOT) 307 U/L Alanine Aminotransferase (ALT/SGPT) 468 U/L Alkaline Phosphatase 184 U/L Total Protein 6.3 gm/dl Albumin 3.3 gm/dl Lipase 72 U/L Assessment and Plan RUQ pain / choledocholithiasis -improved post suzy -pain control, advance diet by surgery / -discussed pumping and discarding, discussed keeping milk supply up DVT proph -ambulation improving
[2016-09-26 03:23] VITALS: BP 112/70; PULSE 60; TEMP 36.9; O2SAT 99
[2016-09-26 05:44] LABS: BASO % 0.6 %; BASO ABS # 0.03 K/uL (0-0.2); COMPLETE YES; HEMATOCRIT 31.8 % (37-47); IG% 0.2 %; LYMPH % 30.7 %; LYMPH ABS # 1.66 K/uL (1.2-3.4); MEAN CELL VOLUME 88.3 fL (80-100); MEAN CORPUSCULAR HEMOGLOBIN 30.8 pg (25-34); MEAN CORPUSCULAR HGB CONC 34.9 g/dl (32-36); MEAN PLATELET VOLUME 9.9 fL (7.4-10.4); MONO % 8.3 %; NEUT % 57.2 %; PLATELET COUNT 233 K/uL (130-400); WHITE BLOOD COUNT 5.41 K/uL (4.8-10.8)
[2016-09-26] MEDS: LACTATED RINGER'S 1000ML 1,000 ML IV SCH ×3 (05:50→18:27)
[2016-09-26] MEDS: AMPICILLIN/SULBACTAM SOD INJ 1,500 MG in SODIUM CHLORIDE 0.9% 100ML 100 ML IV SCH ×4 (05:50→23:33)
[2016-09-26 06:24] LABS: BUN/CREATININE RATIO 18.7 (10-20); CREATININE 0.55 mg/dl (0.60-1.20); POTASSIUM 3.7 mmol/L (3.5-5.1)
--- NOTE | 2016-09-26 07:22 | Surgery Progress Note ---
Surgery Progress Note Date of Service Sep 26, 2016. Subjective Post OP Day: 1 + feeling well feeling well. no major complaints. ambulating. Objective Vital Signs: Date Time Temp Pulse Resp B/P (MAP) Pulse Ox O2 Delivery O2 Flow Rate FiO2 09/26/16 03:23 36.9 60 16 112/70 (84) 99 Room Air 09/25/16 23:59 Room Air 09/25/16 22:57 36.6 58 16 107/68 (81) 98 Room Air 09/25/16 20:00 36.5 59 16 105/63 (77) 99 Room Air 09/25/16 20:00 Room Air 09/25/16 16:07 36.9 75 16 103/61 (75) 100 Nasal Cannula 2.0 09/25/16 15:00 36.8 69 16 105/60 (75) 100 Nasal Cannula 2.0 09/25/16 13:54 61 15 114/70 (85) 100 Nasal Cannula 2.0 09/25/16 13:32 100 Nasal Cannula 2.0 09/25/16 13:00 37.0 59 16 115/76 (89) 100 Nasal Cannula 2.0 09/25/16 12:45 36.5 57 19 118/75 100 Nasal Cannula 2 09/25/16 12:35 56 20 124/78 100 Nasal Cannula 2 09/25/16 12:25 63 18 128/80 100 Mask 8 09/25/16 12:15 58 17 122/77 100 Mask 10 09/25/16 12:08 36.5 58 12 124/76 100 Mask 10 09/25/16 09:14 Room Air General Appearance: no apparent distress Abdomen: non distended, soft Incision(s): clean, dry Laboratory Results: Results Past 24 Hours Test 09/26/16 05:26 Range/Units White Blood Count 5.41 4.8-10.8 K/uL Red Blood Count 3.60 4.2-5.4 M/uL Hemoglobin 11.1 12.0-16.0 g/dL Hematocrit 31.8 37-47 % Mean Corpuscular Volume 88.3 80-100 fL Mean Corpuscular Hemoglobin 30.8 25-34 pg Mean Corpuscular Hemoglobin Concent 34.9 32-36 g/dl Platelet Count 233 130-400 K/uL Mean Platelet Volume 9.9 7.4-10.4 fL Neutrophils (%) (Auto) 57.2 % Lymphocytes (%) (Auto) 30.7 % Monocytes (%) (Auto) 8.3 % Eosinophils (%) (Auto) 3.0 % Basophils (%) (Auto) 0.6 % Neutrophils # (Auto) 3.10 1.4-6.5 K/uL Lymphocytes # (Auto) 1.66 1.2-3.4 K/uL Monocytes # (Auto) 0.45 0.11-0.59 K/uL Eosinophils # (Auto) 0.16 0-0.5 K/uL Basophils # (Auto) 0.03 0-0.2 K/uL RDW Standard Deviation 38.6 36.4-46.3 fL RDW Coefficient of Variation 11.9 11.5-14.5 % Immature Granulocyte % (Auto) 0.2 % Immature Granulocyte # (Auto) 0.01 0.00-0.02 K/uL Sodium Level 141 136-145 mmol/L Potassium Level 3.7 3.5-5.1 mmol/L Chloride Level 107 98-107 mmol/L Carbon Dioxide Level 24 21-32 mmol/L Anion Gap 10.0 3-11 mmol/L Blood Urea Nitrogen 10 7-18 mg/dl Creatinine 0.55 0.60-1.20 mg/dl Est Creatinine Clear Calc Drug Dose 135.8 ml/min Estimated GFR () 146.9 Estimated GFR (Non- 126.8 BUN/Creatinine Ratio 18.7 10-20 Random Glucose 66 70-99 mg/dl Total Bilirubin 0.8 0.2-1 mg/dl Aspartate Amino Transf (AST/SGOT) 86 15-37 U/L Alanine Aminotransferase (ALT/SGPT) 268 12-78 U/L Alkaline Phosphatase 151 45-117 U/L Total Protein 5.5 6.4-8.2 gm/dl Albumin 2.8 3.4-5.0 gm/dl Globulin 2.7 2.5-4.0 gm/dl Albumin/Globulin Ratio 1.0 0.9-2 Lipase 62 73-393 U/L Assessment & Plan POD#1 labs reviewed rob liquids. can advance as tolerated. ok for d/c when ok with primary service. post op instructions given.
--- NOTE | 2016-09-26 07:23 | Gastroenterology Progress Note ---
Progress Note Date of Service: Sep 26, 2016 Subjective Pt evaluation today including: conversation w/ patient, conversation w/ family , physical exam, chart review, lab review Pt was seen and examined this AM. S/P ERCP followed by laparocholecystomy . Tolerated procedures well. Mild abdominal discomfort after procedures - different from her previous episodes of pancreatitis. Did get Indocin pre procedure and fluid bolus post procedure. Lipase this morning WNL. LFTs continue to improve. Review of Systems Constitutional: No fever, No chills Respiratory: No cough, No shortness of breath Cardiac: No chest pain Abdomen: + pain, No nausea, No vomiting, No diarrhea, No constipation, No GI bleeding Medications Current Inpatient Medications Medications (Trade) Dose Ordered Sig/Gregory Route Start Time Stop Time Status Last Admin Dose Admin Acetaminophen (Tylenol Tab) 650 mg Q4H PRN PO 09/24/16 00:30 10/24/16 00:29 09/25/16 15:01 650 MG Ondansetron HCl (Zofran Inj) 4 mg Q6H PRN IV 09/24/16 00:30 10/24/16 00:29 Ampicillin Sodium/ Sulbactam Sodium 1500 mg/Sodium Chloride 104 ml @ 200 mls/hr Q6H IV 09/24/16 18:00 10/04/16 17:59 09/26/16 05:50 200 MLS/HR Morphine Sulfate (MoRPHine SULFATE INJ) 4 mg Q1H PRN IV 09/25/16 12:15 10/09/16 12:14 Lactated Ringer's 1,000 ml @ 150 mls/hr Q6H40M IV 09/25/16 23:14 10/25/16 23:13 09/26/16 05:50 150 MLS/HR Objective Vital Signs Date Time Temp Pulse Resp B/P (MAP) Pulse Ox O2 Delivery O2 Flow Rate FiO2 09/26/16 03:23 36.9 60 16 112/70 (84) 99 Room Air 09/25/16 23:59 Room Air 09/25/16 22:57 36.6 58 16 107/68 (81) 98 Room Air 09/25/16 20:00 36.5 59 16 105/63 (77) 99 Room Air 09/25/16 20:00 Room Air 09/25/16 16:07 36.9 75 16 103/61 (75) 100 Nasal Cannula 2.0 09/25/16 15:00 36.8 69 16 105/60 (75) 100 Nasal Cannula 2.0 09/25/16 13:54 61 15 114/70 (85) 100 Nasal Cannula 2.0 09/25/16 13:32 100 Nasal Cannula 2.0 09/25/16 13:00 37.0 59 16 115/76 (89) 100 Nasal Cannula 2.0 09/25/16 12:45 36.5 57 19 118/75 100 Nasal Cannula 2 09/25/16 12:35 56 20 124/78 100 Nasal Cannula 2 09/25/16 12:25 63 18 128/80 100 Mask 8 09/25/16 12:15 58 17 122/77 100 Mask 10 09/25/16 12:08 36.5 58 12 124/76 100 Mask 10 09/25/16 09:14 Room Air Physical Exam General Appearance: no apparent distress Eyes: PERRL ENT: hearing grossly normal Neck: supple Respiratory/Chest: lungs clear, normal breath sounds Cardiovascular: regular rate, rhythm, no gallop, no JVD, no murmur Abdomen: normal bowel sounds, soft, no organomegaly, + tenderness (mild tendnerness around incision site) Neurologic/Psych: alert, normal mood/affect, oriented x 3 Skin: normal color, no jaundice, warm/dry Laboratory Results Last 24 Hours Test 09/26/16 05:26 White Blood Count 5.41 K/uL Red Blood Count 3.60 M/uL Hemoglobin 11.1 g/dL Hematocrit 31.8 % Mean Corpuscular Volume 88.3 fL Mean Corpuscular Hemoglobin 30.8 pg Mean Corpuscular Hemoglobin Concent 34.9 g/dl Platelet Count 233 K/uL Mean Platelet Volume 9.9 fL Neutrophils (%) (Auto) 57.2 % Lymphocytes (%) (Auto) 30.7 % Monocytes (%) (Auto) 8.3 % Eosinophils (%) (Auto) 3.0 % Basophils (%) (Auto) 0.6 % Neutrophils # (Auto) 3.10 K/uL Lymphocytes # (Auto) 1.66 K/uL Monocytes # (Auto) 0.45 K/uL Eosinophils # (Auto) 0.16 K/uL Basophils # (Auto) 0.03 K/uL RDW Standard Deviation 38.6 fL RDW Coefficient of Variation 11.9 % Immature Granulocyte % (Auto) 0.2 % Immature Granulocyte # (Auto) 0.01 K/uL Sodium Level 141 mmol/L Potassium Level 3.7 mmol/L Chloride Level 107 mmol/L Carbon Dioxide Level 24 mmol/L Anion Gap 10.0 mmol/L Blood Urea Nitrogen 10 mg/dl Creatinine 0.55 mg/dl Est Creatinine Clear Calc Drug Dose 135.8 ml/min Estimated GFR () 146.9 Estimated GFR (Non- 126.8 BUN/Creatinine Ratio 18.7 Random Glucose 66 mg/dl Total Bilirubin 0.8 mg/dl Aspartate Amino Transf (AST/SGOT) 86 U/L Alanine Aminotransferase (ALT/SGPT) 268 U/L Alkaline Phosphatase 151 U/L Total Protein 5.5 gm/dl Albumin 2.8 gm/dl Globulin 2.7 gm/dl Albumin/Globulin Ratio 1.0 Lipase 62 U/L Assessment and Plan Ms. Canchola is a 31 year old female s/p ERCP and lap cholecystectomy. She tolerated both procedures well and is having minimal discomfort. Tolerating diet. LFTs improving and lipase is WNL. Diet as tolerated Avoid NSAIDs x 5 days Tylenol PRN pain Zofran PRN nausea No GI contraindication to discharge. GI to sign off. Please call with any questions or concerns. ATTESTATION: I have performed a history and physical examination of this patient and reviewed the electronic record. Specifically, on physical examination there is mild diffuse abdominal tenderness. I have discussed the case with FRANCIS Quiñones. The above note reflects my findings, conclusions, and recommendations. Noman Ngo MD
[2016-09-26 07:51] VITALS: BP 108/70; PULSE 60; TEMP 36.8; O2SAT 98
--- NOTE | 2016-09-26 07:55 | Anesthesiology Progress Note ---
Anesthesia Post Op Note Date & Time Sep 26, 2016 at 07:54 Vital Signs Pain Intensity: 0.0 Vital Signs Past 12 Hours Date Time Temp Pulse Resp B/P (MAP) Pulse Ox O2 Delivery O2 Flow Rate FiO2 09/26/16 07:51 36.8 60 16 108/70 (83) 98 Room Air 09/26/16 03:23 36.9 60 16 112/70 (84) 99 Room Air 09/25/16 23:59 Room Air 09/25/16 22:57 36.6 58 16 107/68 (81) 98 Room Air 09/25/16 20:00 36.5 59 16 105/63 (77) 99 Room Air 09/25/16 20:00 Room Air Notes Mental Status: alert / awake / arousable, participated in evaluation Pt Amnestic to Procedure: Yes Nausea / Vomiting: adequately controlled Pain: adequately controlled Airway Patency, RR, SpO2: stable & adequate BP & HR: stable & adequate Hydration State: stable & adequate Anesthetic Complications: no major complications apparent
[2016-09-26] MEDS ORDERED: HYDR-5688 PO (09:32)
[2016-09-26 11:15] VITALS: BP 107/69; PULSE 52; TEMP 36.6; O2SAT 100
[2016-09-26 12:35] VITALS: BP 153/83; PULSE 67; O2SAT 98
[2016-09-26 13:09] LABS: CALCIUM 8.6 mg/dl (8.5-10.1)
[2016-09-26 14:57] VITALS: BP 100/62; PULSE 67; TEMP 36.9; O2SAT 98
--- NOTE | 2016-09-26 16:46 | Progress Note ---
Subjective Date of Service: Sep 26, 2016. Subjective Pt evaluation today including: conversation w/ patient, conversation w/ family , physical exam, chart review, lab review, review of inpatient medication list doing much better pain better ate breakfast had a little burning/indigestion after but went away wtihout intervention, RUQ pain and shoulder pain better. doesn't quite feel up to going home yet. present and supportive as well Problem List Medical Problems: (1) Biliary colic Status: Acute (2) Choledocholithiasis Status: Acute (3) Pancreatitis Status: Acute Review of Systems ros otherwise negative except for as above Objective Vital Signs Date Time Temp Pulse Resp B/P (MAP) Pulse Ox O2 Delivery O2 Flow Rate FiO2 09/26/16 14:57 36.9 67 16 100/62 (75) 98 09/26/16 12:35 67 18 153/83 (106) 98 09/26/16 11:15 36.6 52 16 107/69 (82) 100 09/26/16 08:02 Room Air 09/26/16 07:51 36.8 60 16 108/70 (83) 98 Room Air 09/26/16 03:23 36.9 60 16 112/70 (84) 99 Room Air 09/25/16 23:59 Room Air 09/25/16 22:57 36.6 58 16 107/68 (81) 98 Room Air 09/25/16 20:00 36.5 59 16 105/63 (77) 99 Room Air 09/25/16 20:00 Room Air Physical Exam General Appearance: no apparent distress Eyes: EOMI ENT: hearing grossly normal Neck: trachea midline Respiratory/Chest: no respiratory distress, no accessory muscle use Neurologic/Psychiatric: care attendant II-XII nml as tested, alert, normal mood/affect Skin: normal color, warm/dry Laboratory Results Last 24 Hours Test 09/26/16 05:26 White Blood Count 5.41 K/uL Red Blood Count 3.60 M/uL Hemoglobin 11.1 g/dL Hematocrit 31.8 % Mean Corpuscular Volume 88.3 fL Mean Corpuscular Hemoglobin 30.8 pg Mean Corpuscular Hemoglobin Concent 34.9 g/dl Platelet Count 233 K/uL Mean Platelet Volume 9.9 fL Neutrophils (%) (Auto) 57.2 % Lymphocytes (%) (Auto) 30.7 % Monocytes (%) (Auto) 8.3 % Eosinophils (%) (Auto) 3.0 % Basophils (%) (Auto) 0.6 % Neutrophils # (Auto) 3.10 K/uL Lymphocytes # (Auto) 1.66 K/uL Monocytes # (Auto) 0.45 K/uL Eosinophils # (Auto) 0.16 K/uL Basophils # (Auto) 0.03 K/uL RDW Standard Deviation 38.6 fL RDW Coefficient of Variation 11.9 % Immature Granulocyte % (Auto) 0.2 % Immature Granulocyte # (Auto) 0.01 K/uL Sodium Level 141 mmol/L Potassium Level 3.7 mmol/L Chloride Level 107 mmol/L Carbon Dioxide Level 24 mmol/L Anion Gap 10.0 mmol/L Blood Urea Nitrogen 10 mg/dl Creatinine 0.55 mg/dl Est Creatinine Clear Calc Drug Dose 135.8 ml/min Estimated GFR () 146.9 Estimated GFR (Non- 126.8 BUN/Creatinine Ratio 18.7 Random Glucose 66 mg/dl Calcium Level 8.6 mg/dl Total Bilirubin 0.8 mg/dl Aspartate Amino Transf (AST/SGOT) 86 U/L Alanine Aminotransferase (ALT/SGPT) 268 U/L Alkaline Phosphatase 151 U/L Total Protein 5.5 gm/dl Albumin 2.8 gm/dl Globulin 2.7 gm/dl Albumin/Globulin Ratio 1.0 Lipase 62 U/L Assessment and Plan RUQ pain / choledocholithiasis -improved post suzy -diet advanced, pain under control, hopefully home either later today or tomorrow / -she is doing well on minimal meds, have discussed pumping/discarding/breast feeding/formula supplementation multiple times DVT proph -ambulation improving
[2016-09-26 23:27] VITALS: BP 125/79; PULSE 56; TEMP 37; O2SAT 96
[2016-09-27] MEDS: LACTATED RINGER'S 1000ML 1,000 ML IV SCH ×2 (01:39→08:37)
[2016-09-27] MEDS: AMPICILLIN/SULBACTAM SOD INJ 1,500 MG in SODIUM CHLORIDE 0.9% 100ML 100 ML IV SCH (05:31)
[2016-09-27 06:05] LABS: ALT/SGPT 181 U/L (12-78); AST/SGOT 37 U/L (15-37); BLOOD UREA NITROGEN 11 mg/dl (7-18); BUN/CREATININE RATIO 24.4 (10-20); CARBON DIOXIDE 29 mmol/L (21-32); CHLORIDE 108 mmol/L (98-107); CREATININE 0.47 mg/dl (0.60-1.20); GLUCOSE 80 mg/dl (70-99); POTASSIUM 3.5 mmol/L (3.5-5.1); SODIUM 144 mmol/L (136-145)
[2016-09-27 06:06] LABS: CALCIUM 9.1 mg/dl (8.5-10.1)
[2016-09-27 06:07] LABS: ALB/GLOB RATIO 1.1 (0.9-2); ALKALINE PHOSPHATASE 135 U/L (45-117)
[2016-09-27 07:07] VITALS: BP 121/76; PULSE 50; TEMP 36.7; O2SAT 97
--- NOTE | 2016-09-27 09:41 | Discharge Instructions ---
Discharge Instructions Date of Service Sep 27, 2016. Admission Reason for Admission: Cholecystitis Discharge Discharge Diagnosis / Problem: choledocholithasis Discharge Goals Goal(s): Decrease discomfort, Diagnostic testing, Therapeutic intervention Activity Recommendations Activity Limitations: as noted below (as per Dr Garces's separate post op discharge instructions) . Instructions / Follow-Up Instructions / Follow-Up today's labs: Last 24 Hours Test 09/27/16 05:22 Sodium Level 144 mmol/L Potassium Level 3.5 mmol/L Chloride Level 108 mmol/L Carbon Dioxide Level 29 mmol/L Anion Gap 7.0 mmol/L Blood Urea Nitrogen 11 mg/dl Creatinine 0.47 mg/dl Est Creatinine Clear Calc Drug Dose 158.9 ml/min Estimated GFR () > 150.0 Estimated GFR (Non- 133.5 BUN/Creatinine Ratio 24.4 Random Glucose 80 mg/dl Calcium Level 9.1 mg/dl Total Bilirubin 0.5 mg/dl Aspartate Amino Transf (AST/SGOT) 37 U/L Alanine Aminotransferase (ALT/SGPT) 181 U/L Alkaline Phosphatase 135 U/L Total Protein 5.7 gm/dl Albumin 3.0 gm/dl Globulin 2.7 gm/dl Albumin/Globulin Ratio 1.1 since your liver enzymes are improving, and were almost certainly up due to the situation with the stone/gallbladder, we'd recommend that as long as you're feeling better, you simply have Dr Dunbar check labs in about a week. obviously if you're feeling worse (worse pain, pain after eating, fevers, etc) then labs would need to be checked sooner, but for purposes of simply "making sure things get back to normal" (which is expected) checking next week will save you having repeated labs follow up with Dr Garces next week for a post op follow up it is not uncommon for people to have some fat malabsorption after a gallbladder removal. for most people this is pretty short lived (a few days to a few weeks) but for some people (really rarely) it can last months. you'd see this to be the case if you have crampy/fatty diarrhea very shortly after eating. if this was the case, then change your diet over to more proteins and carbs for a few days before trying anything fatty again : -for mild to moderate pain, acetaminophen (tylenol) or ibuprofen (motrin, advil ) are the preferred medications. both are of course available over the counter -for severe pain, the hydrocodone can be looked at as your "safety net" but some of it does get into the breast milk. while an acceptable option would be to nurse and watch your baby close after, it would be a little safer to pump and discard breast milk for about 4-6 hours after taking a dose Current Hospital Diet Patient's current hospital diet: Regular Diet Discharge Diet Recommended Diet: Regular Diet Procedures Procedures Performed: Endoscopic Retrograde Cholangiopancreatography with sphincterotomy and balloon sweeping; Laparoscopic cholecystectomy. Pending Studies Studies pending at discharge: yes List of pending studies: the official pathology on your gallbladder is still pending, although we do not expect anything surprising Medical Emergencies . Who to Call and When: Medical Emergencies: If at any time you feel your situation is an emergency, please call 911 immediately. . Non-Emergent Contact Non-Emergency issues call your: Primary Care Provider, Surgeon . . "Provider Documentation" section prepared by Shaquille Morton. . VTE Core Measure Inpt VTE Proph given/why not?: SCD's (ambulation)
[2016-09-27 10:49] VITALS: BP 121/76; PULSE 50; TEMP 36.7; O2SAT 97
--- NOTE | 2016-09-27 15:57 | Discharge Summary ---
Discharge Summary Date of Service Sep 27, 2016. Discharge Summary Admission Date: Sep 24, 2016 at 00:40 Discharge Date: Sep 27, 2016 Discharge Disposition: Home Principal Diagnosis: choledolcholithiasis Procedures: Operative Report Operative Date Sep 25, 2016. Pre-Operative Diagnosis Choledocholithiasis. Post-Operative Diagnosis Same Procedure(s) Performed lap suzy Surgeon Dr. Garces, Dr. Ngo Podiatrist Surgeon(s) MARCO Urban Estimated Blood Loss [address] Ngo's report. sludge in CBD. normal anatomy during lap suzy Fluids See anesthesia note Specimens A: Gallbladder. Drains None Anesthesia General Complication(s) None Disposition Recovery Room / PACU (Laparoscopic cholecystectomy to follow immediately) I attest to the content of the Intraoperative Record and any orders documented therein. Any exceptions are noted below. <Electronically signed by Michael Garces D.O.> Signed: 09/25/16 1201 ERCP w sphincterotomy and sludge removal same time as cholecystectomy CLINICAL HISTORY: ABDOMINAL PAIN/GI nausea. Vomiting. TECHNIQUE: Ultrasound COMPARISON STUDY: 09/12/2016 FINDINGS: Gallstones and sludge within the somewhat distended gallbladder. Common bile that mildly increased in prominence at 9 mm. Liver pancreas and right kidney are unremarkable. IMPRESSION: 1. Gallstones and gallbladder sludge. 2. Slight increase in distention of the common bile duct currently at 9 mm. Electronically signed by: Jesus Forrest M.D. 09/24/2016 5:40 AM Dictated Date/Time: 09/24/2016 5:38 AM MRI abdomen MRCP CLINICAL HISTORY: suspect choledocholithiasis TECHNIQUE: Multiaxial MRI acquisition COMPARISON STUDY: 09/23/2016 FINDINGS: Liver is uniform throughout. Delayed images of the slightly comminuted fracture a 6.5 mm. This is diminished in the patient's prior ultrasound. Slight thickening of the gallbladder wall. There is a potential 3 mm filling defect of the mid common duct on coronal 2-D images #9 and 23. Mild irritability of the distal common duct. All remaining components of the study are unremarkable. Pancreatic duct is negative for distention. IMPRESSION: 1. Mild decrease in diameter of the common bile duct to a current dimension 6.5 mm. 2. Possible 3 mm calculus within the mid common duct on a single reformatted coronal image 3. All remaining components of the study are unremarkable. 4. Mild thickening gallbladder wall Electronically signed by: Jesus Forrest M.D. 09/24/2016 2:52 PM Dictated Date/Time: 09/24/2016 2:43 PM Last 24 Hours Test 09/27/16 05:22 Sodium Level 144 mmol/L Potassium Level 3.5 mmol/L Chloride Level 108 mmol/L Carbon Dioxide Level 29 mmol/L Anion Gap 7.0 mmol/L Blood Urea Nitrogen 11 mg/dl Creatinine 0.47 mg/dl Est Creatinine Clear Calc Drug Dose 158.9 ml/min Estimated GFR () > 150.0 Estimated GFR (Non- 133.5 BUN/Creatinine Ratio 24.4 Random Glucose 80 mg/dl Calcium Level 9.1 mg/dl Total Bilirubin 0.5 mg/dl Aspartate Amino Transf (AST/SGOT) 37 U/L Alanine Aminotransferase (ALT/SGPT) 181 U/L Alkaline Phosphatase 135 U/L Total Protein 5.7 gm/dl Albumin 3.0 gm/dl Globulin 2.7 gm/dl Albumin/Globulin Ratio 1.1 Consultations: GI general surgery Medication Reconciliation New Medications: Hydrocodone/Acetaminophen 5MG/325MG ([place] 5MG/325MG) Tab 1-2 TABLET PO Q4H PRN for Pain, #20 TAB Continued Medications: Docusate Sodium (Colace) 100 Mg Cap 100 MG PO QAM Ferrous Sulfate (Iron) 325 Mg Tab 325 MG PO QAM Multivit/Min/Iron/Fol Ac/Pren ( Vitamin) Tab 1 TAB PO HS Discharge Exam Physical Exam: General Appearance: no apparent distress Eyes: EOMI ENT: hearing grossly normal Neck: trachea midline Respiratory/Chest: no respiratory distress, no accessory muscle use Extremities: normal inspection 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, alert, normal mood/affect Skin: normal color, warm/dry Hospital Course RUQ pain / choledocholithiasis -improved post suzy -diet advanced, pain under control, stable for home today / -she is doing well on minimal meds, have discussed pumping/discarding/breast feeding/formula supplementation multiple times; pain control at home will be tylenol or ibuprofen preferred, discussed risk mitigation for if lortab required DVT proph -ambulation improving overall and stable for home Total Time Spent: Greater than 30 minutes This includes examination of the patient, discharge planning, medication reconciliation, and communication with other providers. Discharge Instructions Please refer to the electronic Patient Visit Report (Discharge Instructions) for additional information. Additional Copies To Michael Garces D.O.; Senait Dunbar M.D.
== END 2016-09-27 11:02 | disposition home or self-care (01) | DRG 417 ==
LOC: C.EDB 21:59 → C.3E 09-24 00:40 → ENRESERV 09-24 01:07
PROVIDERS: ADMIT Internal Medicine; ATTEND Family Medicine
PROC: 0F998ZZ Drainage of Common Bile Duct, Via Natural or Artificial Opening Endoscopic (ICD-10-PCS; principal; 2016-09-25 07:15)
PROC: 0FT44ZZ Resection of Gallbladder, Percutaneous Endoscopic Approach (ICD-10-PCS; 2016-09-25 07:15)
DX: K80.40 Calculus of bile duct with cholecystitis, unspecified, without obstruction (principal); K85.10 Biliary acute pancreatitis without necrosis or infection

== ENCOUNTER 2018-07-27 17:56 | Inpatient (IN) ==
[2018-07-27] MEDS ORDERED: OXYTOCIN 30 UNITS/500 ML BAG IV PRN ×2 (17:58→19:26)
[2018-07-27] MEDS ORDERED: LACTATED RINGER'S 1,000 ML IV PRN (17:58)
[2018-07-27] MEDS ORDERED: LACTATED RINGER'S 1,000 ML IV SCH (18:00)
[2018-07-27 18:19] LABS: Hematocrit (blood only) 36.3 % (37-47); Hemoglobin 13.3 g/dL (12.0-16.0); Mean Corpuscular Volume 89.9 fL (80-100); Mean Platelet Volume 10.4 fL (7.4-10.4); Platelet Count 192 K/uL (130-400); RDW Coefficient of Variation 12.4 % (11.5-14.5); RDW Standard Deviation 40.4 fL (36.4-46.3); Red Blood Count 4.04 M/uL (4.2-5.4); White Blood Count 8.32 K/uL (4.8-10.8)
[2018-07-27 18:26] LABS: Mean Corpuscular Hgb Conc 36.6 g/dL (32-36)
[2018-07-27] MEDS ORDERED: fentaNYL citrate 100 MCG/2 ML VIAL ONE (18:32)
[2018-07-27] MEDS ORDERED: BUPIVACAINE 0.25% 30 ML VIAL ONE (18:32)
[2018-07-27] MEDS ORDERED: ePHEDrine sulfate 50 MG/ML AMP ONE (18:32)
[2018-07-27] MEDS ORDERED: fentaNYL 2MCG/ML ROPIV 1.25MG/ML 100 ML BAG EPI ONE (18:33)
[2018-07-27] MEDS ORDERED: OXYCODONE/ACETAMINOPHEN 5mg/325mg TAB PO PRN (19:26)
[2018-07-27] MEDS ORDERED: HYDROCORTISONE ACETATE 25 MG SUPP PR PRN (19:26)
[2018-07-27] MEDS ORDERED: ACETAMINOPHEN 325 MG TAB PO PRN (19:26)
[2018-07-27] MEDS ORDERED: DIPHTHERIA/TETANUS/PERTUSSIS 0.5 ML SYR/VIAL IM ONE (19:26)
[2018-07-27] MEDS ORDERED: BISACODYL 10 MG SUPP PR PRN (19:26)
[2018-07-27] MEDS ORDERED: BENZOCAINE 20% AER SPR 82.5 GM CAN EXT PRN (19:26)
[2018-07-27] MEDS ORDERED: SUPERCREAM 0.870% 15 GM JAR EXT PRN (19:26)
[2018-07-27] MEDS: IBUPROFEN 600 MG TAB PO PRN (19:50)
--- NOTE | 2018-07-27 21:04 | Delivery Summary ---
DATE OF OPERATION: 07/27/2018 HISTORY: The patient is a 33-year-old 2, para 1-0-0-1 female, EDC of 08/02/2018 who presented after rupture of membranes and subsequently began marisol regularly. She arrived on labor and delivery at 6 cm dilated and went rapidly to full dilation. She pushed effectively over intact perineum for delivery of a viable female . There was vigorous crying and the infant was moving all 4 limbs upon delivery. The was placed on the mother's abdomen for further attention and drying. After 30 seconds, the cord was clamped and cut. The placenta was then expressed intact with 3-vessel cord. Lidocaine 1% was used to anesthetize the second degree perineal laceration. The 3-0 chromic was used to repair the laceration in the usual fashion. Estimated blood loss was 250 mL. bleeding was controlled with dilute Pitocin. Mother and were doing well after delivery. I attest to the content of the Intraoperative Record and any orders documented therein. Any exception s are noted below.
[2018-07-27] MEDS: DOCUSATE SODIUM 100 MG CAP PO SCH (22:03)
[2018-07-28] MEDS: IBUPROFEN 600 MG TAB PO PRN ×2 (03:53→19:39)
[2018-07-28 07:22] LABS: Hematocrit (blood only) 30.2 % (37-47); Hemoglobin 10.7 g/dL (12.0-16.0); Mean Corpuscular Hgb Conc 35.4 g/dL (32-36); Mean Corpuscular Volume 89.9 fL (80-100); Mean Platelet Volume 10.2 fL (7.4-10.4); Platelet Count 173 K/uL (130-400); RDW Coefficient of Variation 12.6 % (11.5-14.5); RDW Standard Deviation 40.9 fL (36.4-46.3); Red Blood Count 3.36 M/uL (4.2-5.4); White Blood Count 11.15 K/uL (4.8-10.8)
[2018-07-28] MEDS: PRENATAL VITAMIN 1 TAB PO SCH (08:42)
[2018-07-28] MEDS: DOCUSATE SODIUM 100 MG CAP PO SCH ×2 (08:42→19:39)
--- NOTE | 2018-07-28 09:55 | Obstetrical Progress Note ---
Date of Service July 28, 2018 Assessment & Plan (1) care following vaginal delivery: satisfactory course continue current care plan Day #:: 1 Subjective Ambulation: ambulating normally Voiding: no voiding problems Passing Gas:: Yes Diet Tolerance:: regular diet Lochia:: Small Feeding Type:: breast feeding Review of Systems All systems reviewed & are unremarkable except as noted in HPI & below Physical Exam Vital Signs (Past 24 Hours) Last Vital Signs Temp 98.6 F 07/28/18 07:30 Pulse 85 07/28/18 07:30 Resp 18 07/28/18 07:30 BP 133/84 07/28/18 07:30 Constitutional WD/WN, vitals as above Musculoskeletal no calf tenderness Genitourinary OB Exam Abdomen: + fundal height Fundus: + firm and + relation to umbilicus (2 below U)
[2018-07-28] MEDS ORDERED: BISACODYL 5 MG TABEC PO SCH (20:00)
--- NOTE | 2018-07-29 07:26 | Obstetrical Progress Note ---
Date of Service July 29, 2018 Assessment & Plan (1) care following vaginal delivery: stable course discharge to home follow up in weeks. Day #:: 2 Subjective Ambulation: ambulating normally Voiding: no voiding problems Passing Gas:: Yes Diet Tolerance:: regular diet Lochia:: Small Feeding Type:: breast feeding Review of Systems All systems reviewed & are unremarkable except as noted in HPI & below Physical Exam Vital Signs (Past 24 Hours) Last Vital Signs Temp 98.2 F 07/28/18 23:33 Pulse 68 07/28/18 23:33 Resp 18 07/28/18 23:33 BP 123/76 07/28/18 23:33 Constitutional WD/WN, vitals as above Gastrointestinal (Abdomen) normal bowel sounds, soft, nontender, no hepatosplenomegaly Musculoskeletal no calf tenderness Genitourinary OB Exam Abdomen: + fundal height Fundus: + firm and + relation to umbilicus (2 below U)
[2018-07-29] MEDS: DOCUSATE SODIUM 100 MG CAP PO SCH (08:56)
[2018-07-29] MEDS: PRENATAL VITAMIN 1 TAB PO SCH (08:56)
[2018-07-29 09:43] LABS: Hematocrit (blood only) 33.8 % (37-47); Hemoglobin 12.1 g/dL (12.0-16.0)
--- OUTSIDE RECORDS SUMMARY | 2018-07-29 22:39 | External Medical Summary | Continuity of Care Document ---
:1985 Author Name Sarah Uribe, Provider Address Unavailable Unavailable , Care Team Providers Name Role Phone Unavailable Unavailable Unavailable Problems Calculus of gallbladder with chronic cho lecystitis without obstruction (574.10) (K80.10) Previous delivery, antepartum, third trimester (V23. 41) (O09.213) Allergies and Adverse Reactions Flagyl (Allergy) Reaction: Itching, A bdominal pain, Vomiting, Nausea Medications Vitamins TABS , M.D. Refills: 0 Tylenol TABS , M.D. Refills: 0 Procedures History of Oral Surgery Tooth Extraction Status: Completed History of cholecystectomy laparoscopic Status: Completed 25-Sep-2016 0:00 History of endoscopic retrograde Status: Completed 25-Sep-2016 0:00 cholangiopancreatography Immunizations Fluzone Quadrivalent 0.5 ML Intramuscular Suspension On: Feb-2016 11:40 Lot #: [id number], [employer] Tdap (Adacel) On: 07-Jul-2016 10:00 Lot #: [id number], [employer] Fluzone Quadrivalent 0.5 ML Intramuscular Suspension On: Dec-2017 10:51 Lot #: [id number], [employer] Tdap (Adacel) On: 08-May-2018 10:02 Lot #: [id number], [employer] Family History Unknown Family Member Family history of thyroid disease (V18.19) Status: Active Comments: Family History (Z83.49) Family history of hypertension (V17.49) Status: Active Comments: Family History (Z82.49) Family history of diabetes mellitus (V18.0) Status: Active Comments: Family History (Z83.3) Grandmother Family history of diabetes mellitus (V18.0) (Z83.3) Status: Active aunt Family history of malignant neoplasm (V16.9) (Z80.9) Status: Active Family history of In good health Status: Active Mother Family history of In good health Status: Active Father Family history of In good health Status: Active Plan of Treatment Planned Observations Planned Goals not documented Results Group B Strep/JAUREGUI 03-Jul-2018 0:00 GRP B BETA STREP CULTURE - JAUREGUI ORDERED P ROCEDURE : GRP B Beta Strep Culture -JAUREGUI; Speciment : V aginal/Rectal Source of Specimen: Vaginal/ Rectal Group B St rep Culture : No Group B Strep isolated Vital Signs 23-Jul-2018 10:22 Systolic 118 mm[Hg] Diastolic 78 mm[Hg] Height 64 in Weight 175.25 lb BMI Calculated 30.08 kg/m2 BSA Calculated 1.85 m2 16-Jul-2018 10:28 Systolic 122 mm[Hg] Diastolic 86 mm[Hg] Height 64 in Weight 172.5 lb BMI Calculated 29.61 kg/m2 BSA Calculated 1.84 m2 09-Jul-2018 10:35 Systolic 110 mm[Hg] Diastolic 72 mm[Hg] Height 64 in Weight 173.25 lb BMI Calculated 29.74 kg/m2 BSA Calculated 1.84 m2 03-Jul-2018 10:03 Systolic 126 mm[Hg] Diastolic 72 mm[Hg] Height 64 in Weight 169.4 lb BMI Calculated 29.08 kg/m2 BSA Calculated 1.82 m2 Encounters Appointment; Shobha Leyva M.D. 23-Jul-2018 10:30 Encounter Diagnosis: Problem not documented Appointment; Tim Stanford M.D. 16-Jul-2018 10:50 Encounter Diagnosis: Problem not documented Appointment; Horacio Hilario M.D. 09-Jul-2018 10:40 Encounter Diagnosis: Problem not documented Appointment; Daysi Lugo M.D. 03-Jul-2018 10:30 Encounter Diagnosis: Problem not documented Appointment; Marlen Hdez DO 19-Jun-2018 10:30 Encounter Diagnosis: Problem not documented Appointment; Hermelindo Hart M.D. 05-Jun-2018 9:40 Encounter Diagnosis: Problem not documented Appointment; Tim Stanford M.D. 22-May-2018 9:30 Encounter Diagnosis: Problem not documented Appointment; Marlen Hdez DO 08-May-2018 9:50 Encounter Diagnosis: Problem not documented Appointment; Nata Subramanian M.D. 17-Apr-2018 10:30 Encounter Diagnosis: Problem not documented Appointment; Horacio Hilario M.D. 20-Mar-2018 9:50 Encounter Diagnosis: Problem not documented Appointment; OBGYN SC1, Ultrasound 20-Mar-2018 9:00 Encounter Diagnosis: Problem not documented Appointment; Tim Stanford M.D. 14-Feb-2018 9:40 Encounter Diagnosis: Problem not documented Appointment; Estephanie Michael M.D. 23-Jan-2018 9:30 Encounter Diagnosis: Problem not documented Appointment; OBGYN SC2, Ultrasound 27-Dec-2017 10:30 Encounter Diagnosis: Problem not documented Appointment; OB SC1, Procedure Rm 26-Dec-2017 9:50 Encounter Diagnosis: Problem not documented Appointment; Marlen Hdez DO 26-Dec-2017 9:50 Encounter Diagnosis: Problem not documented Appointment; OB SC1, Nursing Station 19-Dec-2017 9:45 Encounter Diagnosis: Problem not documented Appointment; Estephanie Michael M.D. 17-Oct-2016 13:40 Encounter Diagnosis: Problem not documented Appointment; Michael Garces DO 11-Oct-2016 9:40 Encounter Diagnosis: Problem not documented Appointment; Nata Subramanian M.D. 18-Aug-2016 9:00 Encounter Diagnosis: Problem not documented Appointment; Horacio Hilario M.D. 04-Aug-2016 10:30 Encounter Diagnosis: Problem not documented
== END 2018-07-29 15:38 | disposition home or self-care (01) | DRG 807 ==
LOC: OPB 17:56 → 4S1 17:57 → 4S2 21:37